=== PATIENT | female | born 1975 | race American Indian/Alaskan Native ===

== ENCOUNTER 2016-11-09 04:12 | Observation (INO) | payer MEDICARE ==
[2016-11-09 06:14] LABS: Eosinophils % (Auto) 0.7 % (0.0-4.3); Hematocrit 38.3 % (30.3-42.9); Hemoglobin 12.2 gm/dl (10.1-14.3); Mean Corpuscular HGB Conc 32 % (30-34); Mean Corpuscular Hemoglobin 27 pg (28-32); Mean Corpuscular Volume 86 fl (79-97); Platelet Count 195 K/mm3 (140-440); Red Blood Count 4.47 M/mm3 (3.65-5.03); Red Cell Distribution Width 16.7 % (13.2-15.2); White Blood Count 9.5 K/mm3 (4.5-11.0)
[2016-11-09 06:37] LABS: Anion Gap 19 mmol/L; BUN/Creatinine Ratio 17.77; Blood Urea Nitrogen 16 mg/dL (7-17); Calcium 9.1 mg/dL (8.4-10.2); Carbon Dioxide 21 mmol/L (22-30); Glucose 98 mg/dL (65-100); Potassium 4.2 mmol/L (3.6-5.0); Sodium 142 mmol/L (137-145)
[2016-11-09] MEDS ORDERED: DILAUDID IV ONE (07:05)
[2016-11-09] MEDS ORDERED: PHENERGAN PR ONE (07:06)
[2016-11-09] MEDS ORDERED: BENADRYL IV ONE (07:06)
[2016-11-09] MEDS ORDERED: PEPCID IV ONE (07:13)
--- NOTE | 2016-11-09 07:13 | Emergency Department Report ---
HPI - General Chief Complaint: Chest Pain Time Seen by Provider: 11/09/16 06:51 - HPI HPI: Room 22 The patient is a 41-year-old female presenting with chief complaint of feeling sick. The patient presents with multiple complaints stating she's felt "sick" for approximately 1.5 weeks. Patient states her symptoms includes wheezing as well as a constant substernal chest pain that is pleuritic in nature. The patient states he feels though her lupus has flared up because she has had arthralgia and a headache. Patient admits to nausea vomiting for 5 days. Patient also complains of a headache for 5 days. Patient admits to a cough occasionally productive of yellow sputum. Patient states her physician a few days ago and was given IM Phenergan. Patient was subsequently sent to [facility] ED for evaluation. The patient states "they wanted to keep me" but she declined. Patient states her symptoms are continuing. The patient states her last stress test was many years ago she has never had a cardiac catheterization Location: [see above] Duration: 1.5 weeks Quality: Pain, nausea, sharp Severity: 10/10 Modifying factors: [see above] Context: [see above] Mode of transportation: Unknown ED Past Medical Hx - Past Medical History Previous Medical History?: Yes Hx Hypertension: Yes Hx Headaches / Migraines: Yes Hx Asthma: Yes Additional medical history: Lupus, Sarcoidosis, Intubated as a child - Surgical History Past Surgical History?: Yes Hx Cholecystectomy: Yes Additional Surgical History: Tonsillectomy/Adenoidectomy Left hand surgey - Family History Family history: no significant - Social History Smoking Status: Never Smoker Substance Use Type: None - Medications Home Medications: Home Medications Medication Instructions Recorded Confirmed Last Taken Type ALBUTEROL Inhaler [Proair] 2 puff IH QID PRN 11/09/16 11/09/16 11/08/16 History ALPRAZolam [Xanax TAB] 2 mg PO BID 11/09/16 11/09/16 11/08/16 History Esomeprazole Magnesium [NexIUM] 40 mg PO QDAY 11/09/16 11/09/16 11/08/16 History Fluticasone/Salmeterol [Advair 1 puff IH PRN 11/09/16 11/09/16 11/08/16 History Diskus 500-50 mcg] Indomethacin 50 mg PO BID 11/09/16 11/09/16 11/08/16 History Levalbuterol HCl [Xopenex 1.25 mg IH PRN 11/09/16 11/09/16 11/08/16 History Concentrate] Lisinopril [Zestril TAB] 10 mg PO QDAY 11/09/16 11/09/16 11/08/16 History Methotrexate Sodium [Trexall] 2.5 mg PO DAILY 11/09/16 11/09/16 11/08/16 History Oxycodone HCl/Acetaminophen 1 each PO Q6HR PRN 11/09/16 11/09/16 11/08/16 History [Percocet 10/325 mg] Pravastatin Sodium [Pravastatin] 10 mg PO QHS 11/09/16 11/09/16 11/08/16 History Promethazine [Phenergan TAB] 50 mg PO BID 11/09/16 11/09/16 11/08/16 History diphenhydrAMINE [Benadryl CAP] 50 mg PO BID PRN 11/09/16 11/09/16 11/08/16 History predniSONE [Deltasone] 10 mg PO QDAY 11/09/16 11/09/16 11/08/16 History ED Review of Systems ROS: Stated complaint: CP/CORINNA Other details as noted in HPI Comment: All other systems reviewed and negative Constitutional: denies: chills, fever Eyes: denies: eye pain, eye discharge, vision change ENT: denies: ear pain, throat pain Respiratory: cough Cardiovascular: chest pain Endocrine: no symptoms reported Gastrointestinal: nausea, vomiting Genitourinary: denies: urgency, dysuria, discharge Musculoskeletal: arthralgia Skin: denies: rash, lesions Neurological: headache. denies: weakness, paresthesias Psychiatric: denies: anxiety, depression Hematological/Lymphatic: denies: easy bleeding, easy bruising Physical Exam - Physical Exam Vital Signs: Vital Signs 11/09/16 11/09/16 11/09/16 04:47 04:57 06:06 Temperature 98.5 F Pulse Rate 108 H 108 H 100 H Respiratory 24 22 Rate Blood Pressure 126/90 Blood Pressure 126/90 119/78 [Left] O2 Sat by Pulse 95 96 Oximetry Physical Exam: GENERAL: The patient is well-developed well-nourished female lying on stretcher with sunglasses in place not appearing to be in acute distress. [] HEENT: Normocephalic. Atraumatic. Patient has moist mucous membranes. NECK: Supple. No meningitic signs are noted. He came midline CHEST/LUNGS: Clear to auscultation. There is no respiratory distress noted. HEART/CARDIOVASCULAR: Regular. There is no tachycardia. There is no gallop rub or murmur. ABDOMEN: Abdomen is soft, with mild discomfort to palpation in the right lower quadrant. Patient has normal bowel sounds. There is no abdominal distention. SKIN: There is no rash. There is no edema. There is no diaphoresis. NEURO: The patient is awake, alert, and oriented. The patient is cooperative. The patient has normal speech MUSCULOSKELETAL: There is no evidence of acute injury. ED Course Vital Signs 11/09/16 11/09/16 11/09/16 04:47 04:57 06:06 Temperature 98.5 F Pulse Rate 108 H 108 H 100 H Respiratory 24 22 Rate Blood Pressure 126/90 Blood Pressure 126/90 119/78 [Left] O2 Sat by Pulse 95 96 Oximetry ED Medical Decision Making - Lab Data Result diagrams: 11/09/16 06:00 11/09/16 05:04 Laboratory Tests 11/09/16 11/09/16 11/09/16 05:04 06:00 06:04 WBC 9.5 RBC 4.47 Hgb 12.2 Hct 38.3 MCV 86 MCH 27 L MCHC 32 RDW 16.7 H Plt Count 195 Lymph % (Auto) 28.5 Simpson % (Auto) 4.9 Eos % (Auto) 0.7 Baso % (Auto) 1.0 Lymph # 2.7 Simpson # 0.5 Eos # 0.1 Baso # 0.1 Seg Neutrophils % 64.9 Seg Neutrophils # 6.2 Sodium 142 Potassium 4.2 Chloride 106.0 Carbon Dioxide 21 L Anion Gap 19 BUN 16 Creatinine 0.9 Estimated GFR > 60 BUN/Creatinine Ratio 17.77 Glucose 98 Calcium 9.1 Troponin T < 0.010 HCG, Qual Negative - EKG Data -: EKG Interpreted by Wy EKG shows normal: sinus rhythm Rate: tachycardia (102 bpm) - EKG Data When compared to previous EKG there are: previous EKG unavailable Interpretation: normal EKG - Radiology Data Radiology results: report reviewed (CT Head, CT chest, CT abdomen and pelvis), image reviewed (CT head, CT chest, CT abdomen and pelvis) CT head (read by radiologist)- no CT evident intracranial injury CT chest (read by the radiologist) (-unremarkable examination CT abdomen and pelvis (read by radiologist)-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 1.8 cm left ovarian cyst. Suspect 12 mm right adrenal adenoma. Consider follow-up noncontrast CT in 6 months to ensure stability in size. Diffuse fatty infiltrates in the liver. Cholecystectomy. - Differential Diagnosis PE, ACS, pneumonia, ICH, migraine Critical care attestation.: If time is entered above; I have spent that time in minutes in the direct care of this critically ill patient, excluding procedure time. ED Disposition Clinical Impression: Chest pain Disposition: OP ADMIT IP TO THIS HOSP Is pt being admited?: Yes Does the pt Need Aspirin: Yes Condition: Fair Instructions: Chest Pain (ED) Referrals: PRIMARY CARE, [Primary Care Provider] - 3-5 Days Time of Disposition: 10:00 (hospitalist paged)
[2016-11-09] MEDS ORDERED: NACL ONE (07:16)
--- NOTE | 2016-11-09 08:47 | Cat Scan Report ---
FINAL REPORT PROCEDURE: CT HEAD/BRAIN WO CON TECHNIQUE: Computerized tomography of the head was performed without contrast material. HISTORY: GLF, syncope COMPARISON: None FINDINGS: Brain volume is age appropriate. There is no hydrocephalus. There is no infarction, intra or extra-axial hemorrhage. There is no mass effect or shift of midline structures. The skull base and calvarium are intact. The partially visualized paranasal sinuses, mastoid air cells and middle ears are clear. IMPRESSION: No CT evident intracranial injury.
--- NOTE | 2016-11-09 08:57 | Cat Scan Report ---
FINAL REPORT PROCEDURE: CT ABDOMEN PELVIS W CON TECHNIQUE: Computerized axial tomography of the abdomen and pelvis was performed after the IV injection of iodinated nonionic contrast. HISTORY: right lower quadrant abdominal pain nausea vomitin COMPARISON: None FINDINGS: Visualized lower thorax: Mild bibasilar subsegmental atelectasis. Liver: Diffuse fatty infiltration. Spleen: Normal. Gallbladder and biliary system: Cholecystectomy. No biliary ductal obstruction. Pancreas: Normal. Adrenals: Suspect 12 millimeter right adrenal adenoma. Normal left adrenal gland. Kidneys: Normal. GI tract: Limited in evaluation without oral contrast. No bowel obstruction or gross focal bowel abnormality. Normal appendix. Lymph nodes and mesentery: Normal. Vasculature: Normal. Bladder: Normal. Reproductive organs: Normal uterus and right adnexa. 1.8 centimeter left ovarian cyst. Peritoneum: No free fluid. Musculoskeletal structures: Curvilinear density of the femoral heads concerning for avascular necrosis without significant femoral head collapse. Mildly bulging annulus at L4/L5. Other: None. 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 1.8 centimeter left ovarian cyst. Suspect 12 millimeter right adrenal adenoma. Consider follow-up noncontrast CT in 6 months to ensure stability in size. Diffuse fatty infiltration of the liver. Cholecystectomy
--- NOTE | 2016-11-09 09:08 | Cat Scan Report ---
FINAL REPORT PROCEDURE: CT ANGIO CHEST TECHNIQUE: Computerized tomographic angiography of the chest was performed during the IV injection of iodinated nonionic contrast including image processing. The image data was postprocessed using 2-dimensional multiplanar reformatted (MPR) and 3-dimensional (MIP and/or volume rendered) techniques. HISTORY: chest pain, pleurisy COMPARISON: None FINDINGS: Heart and pericardium: Normal. Thoracic aorta: Normal. Pulmonary vasculature: Normal. Lymph nodes: No enlarged thoracic lymph nodes. Lungs: There is no pulmonary parenchymal mass, nodule, or infiltrate. Mild dependent subsegmental atelectasis is present.. Pleural space: No effusion, thickening, or pneumothorax. Musculoskeletal structures: No significant abnormality. Upper abdominal structures: Cholecystectomy. Left IJ CVC in place, catheter tip at the cavoatrial junction IMPRESSION: Unremarkable examination
[2016-11-09] MEDS ORDERED: ASPIRIN PO ONE (10:01)
[2016-11-09] MEDS ORDERED: NITRO-BID 2% TP ONE (10:01)
[2016-11-09] MEDS ORDERED: SODIUM CHLORIDE FLUSH SYRINGE 10 ML IV PRN (10:54)
[2016-11-09] MEDS ORDERED: TYLENOL PO PRN (10:54)
[2016-11-09] MEDS ORDERED: PERCOCET 5/325 PO PRN (10:54)
[2016-11-09] MEDS ORDERED: NITROSTAT SL PRN (10:54)
[2016-11-09] MEDS ORDERED: PHENERGAN PR PRN (10:54)
[2016-11-09] MEDS ORDERED: ZOFRAN IV PRN (10:54)
[2016-11-09] MEDS ORDERED: DULCOLAX PR PRN (10:54)
[2016-11-09] MEDS ORDERED: MILK OF MAGNESIA PO PRN (10:54)
[2016-11-09] MEDS ORDERED: NACL 0.9% 1000 ML 1,000 ML IV SCH (11:00)
--- NOTE | 2016-11-09 11:11 | History and Physical Report ---
History of Present Illness Date of examination: 11/09/16 Date of admission: 11/09/16 Chief complaint: chest pain History of present illness: Patient is a 41 years old obese -Burmese female with lupus, hypertension , asthma, chronic pain syndrome, who complains of chest pain that started a few days ago. Chest pain is substernal, intense with physical activity, relieved by rest, associated with shortness of breath, but no nausea, vomiting, diaphoresis. She also complains of chronic cough and occasionally with sputum production. States that "her lupus is flaring up and she has multiple joint pain in her generalized chronic pain is worsening. Patient reports she was seen by her PCP and was given IM Phenergan. She reports either G to multiple narcotics and is asking for Dilaudid. It seems that she presented to multiple hospitals. Past History Past Medical History: hypertension, other (lupus, asthma) Past Surgical History: cholecystectomy, tonsillectomy Social history: denies: smoking, alcohol abuse, prescription drug abuse Family history: hypertension Medications and Allergies Allergies Allergy/AdvReac Type Severity Reaction Status Date / Time baclofen Allergy Rash Verified 11/09/16 07:23 elliott Allergy Rash Verified 11/09/16 07:23 cephalexin monohydrate Allergy Rash Verified 11/09/16 07:23 [From Keflex] fentanyl Allergy Rash Verified 11/09/16 07:23 ipratropium bromide Allergy Rash Verified 11/09/16 07:23 [From Atrovent] ketorolac tromethamine Allergy Rash Verified 11/09/16 07:23 [From Toradol] magnesium Allergy Rash Verified 11/09/16 07:23 meperidine HCl [From Demerol] Allergy Rash Verified 11/09/16 07:23 morphine Allergy Rash Verified 11/09/16 07:23 mushroom Allergy Rash Verified 11/09/16 07:23 nut - unspecified Allergy Rash Verified 11/09/16 07:23 ondansetron HCl Allergy Rash Verified 11/09/16 07:23 [From Zofran (as hydrochloride)] Penicillins Allergy Rash Verified 11/09/16 07:23 pregabalin [From Lyrica] Allergy Rash Verified 11/09/16 07:23 prochlorperazine Allergy Rash Verified 11/09/16 07:23 [From Compazine] prochlorperazine edisylate Allergy Rash Verified 11/09/16 07:23 [From Compazine] prochlorperazine maleate Allergy Rash Verified 11/09/16 07:23 [From Compazine] sumatriptan [From Imitrex] Allergy Seizure Verified 11/09/16 07:23 sumatriptan succinate Allergy Seizure Verified 11/09/16 07:23 [From Imitrex] Home Medications Medication Instructions Recorded Confirmed Last Taken Type ALBUTEROL Inhaler [Proair] 2 puff IH QID PRN 11/09/16 11/09/16 11/08/16 History ALPRAZolam [Xanax TAB] 2 mg PO BID 11/09/16 11/09/16 11/08/16 History Esomeprazole Magnesium [NexIUM] 40 mg PO QDAY 11/09/16 11/09/16 11/08/16 History Fluticasone/Salmeterol [Advair 1 puff IH PRN 11/09/16 11/09/16 11/08/16 History Diskus 500-50 mcg] Indomethacin 50 mg PO BID 11/09/16 11/09/16 11/08/16 History Levalbuterol HCl [Xopenex 1.25 mg IH PRN 11/09/16 11/09/16 11/08/16 History Concentrate] Lisinopril [Zestril TAB] 10 mg PO QDAY 11/09/16 11/09/16 11/08/16 History Methotrexate Sodium [Trexall] 2.5 mg PO DAILY 11/09/16 11/09/16 11/08/16 History Oxycodone HCl/Acetaminophen 1 each PO Q6HR PRN 11/09/16 11/09/16 11/08/16 History [Percocet 10/325 mg] Pravastatin Sodium [Pravastatin] 10 mg PO QHS 11/09/16 11/09/16 11/08/16 History Promethazine [Phenergan TAB] 50 mg PO BID 11/09/16 11/09/16 11/08/16 History diphenhydrAMINE [Benadryl CAP] 50 mg PO BID PRN 11/09/16 11/09/16 11/08/16 History predniSONE [Deltasone] 10 mg PO QDAY 11/09/16 11/09/16 11/08/16 History Active Meds: Active Medications Acetaminophen (Tylenol) 650 mg PO Q4H PRN PRN Reason: Pain MILD(1-3)/Fever >100.5/ARITA Aspirin (Ecotrin) 325 mg PO QDAY ANA Atorvastatin Calcium (Lipitor) 10 mg PO QHS ANA Bisacodyl (Dulcolax) 10 mg RI QDAY PRN PRN Reason: Const[place]relie[place] [facility] Docusate Sodium (Colace) 100 mg PO BID [facility] Enoxaparin Sodium (Lovenox) 40 mg SUB-Q QDAY ANA Famotidine (Pepcid) 10 mg IV BID ANA Hydrochlorothiazide (Hctz) 12.5 mg PO QDAY ONE Stop: 11/09/16 11:10 Sodium Chloride (Nacl 0.9% 1000 Ml) 1,000 mls @ 75 mls/hr IV DIRECT ANA Lisinopril (Zestril) 10 mg PO QDAY [facility] Magnesium Hydroxide (Milk Of Magnesia) 30 ml PO Q4H PRN PRN Reason: Constipation Miscellaneous Medication (Alprazolam [Xanax Tab]) 2 mg PO BID [facility] Miscellaneous Medication (Fluticasone/Salmeterol [Advair Diskus 500-50 Mcg]) 1 puff IH PRN [facility] Miscellaneous Medication (Indomethacin [Indomethacin]) 50 mg PO BID [facility] Miscellaneous Medication (Methotrexate Sodium [Trexall]) 2.5 mg PO DAILY ANA Miscellaneous Medication (Pravastatin Sodium [Pravastatin]) 10 mg PO QHS [facility] Nitroglycerin (Nitrostat) 0.4 mg SL Q5M PRN PRN Reason: Chest Pain Ondansetron HCl (Zofran) 4 mg IV Q8H PRN PRN Reason: N/V unrelieved by Reglan Oxycodone/Acetaminophen (Percocet 5/325) 1 tab PO Q6H PRN PRN Reason: Pain, Moderate (4-6) Prednisone (Deltasone) 10 mg PO QDAY ANA Promethazine HCl (Phenergan) 25 mg RI Q6H PRN PRN Reason: N/V IF NPO AND NO IV ACCESS Sodium Chloride (Sodium Chloride Flush Syringe 10 Ml) 10 ml IV PRN PRN PRN Reason: LINE FLUSH Review of Systems Constitutional: no weight loss, no weight gain, no fever, no chills Ears, nose, mouth and throat: no ear pain, no tinnitis, no nasal congestion, no nasal discharge, no bleeding gums, no dysphagia Cardiovascular: chest pain, shortness of breath, dyspnea on exertion, no orthopnea, no palpitations, no syncope Respiratory: cough with sputum, shortness of breath, dyspnea on exertion, no congestion, no wheezing, no pleurisy Gastrointestinal: nausea, no abdominal pain, no vomiting, no change in bowel habits Genitourinary Female: no pelvic pain, no flank pain, no menorrhagia, no dysuria Rectal: no pain, no incontinence, no itching, no hemorrhoids Musculoskeletal: morning stiffness, muscle weakness, limitation of motion, other (joint pain) Integumentary: no rash, no pruritis, no sores, no wounds Neurological: no weakness, no parathesias, no numbness, no tingling Psychiatric: no anxiety, no memory loss, no depression, no hopelessness Endocrine: no cold intolerance, no heat intolerance, no polydipsia, no polyuria Hematologic/Lymphatic: no easy bruising, no easy bleeding, no lymphadenopathy, no lymphedema Allergic/Immunologic: no persistent infections Exam - Constitutional Vitals: Temp Pulse Resp BP Pulse Ox 98.3 F 105 H 20 162/98 95 11/09/16 07:37 11/09/16 07:37 11/09/16 07:37 11/09/16 07:37 11/09/16 07:37 General appearance: Present: no acute distress, obese - EENT Eyes: Present: PERRL, EOM intact. Absent: scleral icterus, conjunctival injection - Neck Neck: Present: supple, normal ROM. Absent: masses or JVD - Respiratory Respiratory effort: normal Respiratory: bilateral: diminished (bybasilar due to body habitus), negative: rhonchi, wheezing - Cardiovascular Rhythm: other (tachycardic) Heart Sounds: Present: S1 & S2. Absent: systolic murmur - Extremities Extremities: no ischemia - Abdominal General gastrointestinal: Present: soft, non-tender, non-distended, normal bowel sounds - Integumentary Integumentary: Present: warm, dry. Absent: jaundice, rash - Musculoskeletal Musculoskeletal: strength equal bilaterally - Psychiatric Psychiatric: no appropriate mood/affect, cooperative - Neurologic Neurologic: CNII-XII intact, no focal deficits Results - Labs CBC & Chem 7: 11/09/16 06:00 11/09/16 05:04 Labs: Abnormal lab results 11/09/16 11/09/16 Range/Units 05:04 06:00 MCH 27 L (28-32) pg RDW 16.7 H (13.2-15.2) % Carbon Dioxide 21 L (22-30) mmol/L - Imaging and Cardiology EKG: image reviewed Chest x-ray: image reviewed CT scan - abdomen: report reviewed CT scan - chest: report reviewed CT Scan - head: report reviewed Assessment and Plan 1. Chest pain EKG with no acute changes, troponin negative Will trend cardiac enzymes and obtain stress test given her risk factors - obesity, hypertension, chronic inflammation, family history 2. Asthma Inhaled bronchodilators, supplemental oxygen as needed 3. Hypertension Resume lisinopril, add HCTZ 4. Lupus Resume methotrexate/prednisone 5. Nausea/vomiting? IV fluids, Zofran 6. Obesity Counseled regarding importance of losing weight and lifestyle changes 7. DVT prophylaxis Lovenox
[2016-11-09] MEDS ORDERED: ZESTRIL PO SCH (12:00)
[2016-11-09] MEDS ORDERED: HCTZ PO SCH (12:00)
[2016-11-09] MEDS ORDERED: LOVENOX SUB-Q SCH (12:00)
[2016-11-09] MEDS ORDERED: COLACE PO SCH (12:00)
[2016-11-09] MEDS ORDERED: DELTASONE PO SCH (12:00)
[2016-11-09 12:32] VITALS: BP 121/78
[2016-11-09] MEDS ORDERED: FLUSH HEPARIN IV ONE ×2 (19:22→19:27)
[2016-11-09] MEDS ORDERED: BROVANA NEBU IH SCH (20:00)
[2016-11-09] MEDS ORDERED: PULMICORT IH SCH (20:00)
[2016-11-09] MEDS ORDERED: XANAX PO SCH (22:00)
[2016-11-09] MEDS ORDERED: INDOCIN PO SCH (22:00)
[2016-11-09] MEDS ORDERED: NON-FORMULARY (Pravastatin Sodium [Pravastatin] 10 MG) PO SCH (22:00)
[2016-11-09] MEDS ORDERED: PEPCID IV SCH (22:00)
--- NOTE | 2016-11-10 09:05 | Discharge Summary ---
Providers - Providers Date of Admission: 11/09/16 12:01 Date of discharge: 11/10/16 Attending physician: CALIXTO BETH Primary care physician: DEEPA BURGESS MD Hospitalization Reason for admission: chest pain Condition: Stable Disposition: DC-07 LEFT AGAINST MED ADVICE Core Measure Documentation - Palliative Care Palliative Care/ Comfort Measures: Not Applicable - Core Measures Any of the following diagnoses?: none Exam - Constitutional Vitals: Temp Pulse Resp BP Pulse Ox 98.3 F 84 18 121/78 100 11/09/16 07:37 11/09/16 13:04 11/09/16 12:55 11/09/16 12:16 11/09/16 12:16 Plan Follow up with: PRIMARY MD JENIFER [Primary Care Provider] - 3-5 Days
[2016-11-10] MEDS ORDERED: METHOTREXATE SODIUM 2.5 MG PO SCH (10:00)
[2016-11-10] MEDS ORDERED: ECOTRIN PO SCH (10:00)
[2016-11-10] MEDS ORDERED: METHOTREXATE(DOSE WEEKLY ONLY) PO SCH (10:00)
[2016-11-10] MEDS ORDERED: LOVENOX SUB-Q SCH (10:00)
--- NOTE | 2016-11-13 09:55 | Query- Chest Pain ---
[place]____Arnaldo Date:____11/13/16 Air Duct Mechanic/CDS:____Darryl / Yang Phone#:____[phone] Exercise your independent professional judgment when responding to query. Questions asked do not imply a particular answer is desired or expected. We greatly appreciate your clarification on this issue. Clinical Documentation States: 41 year old female was admitted on 11/09/16. The H&P (Dr. Mcintosh) states " Patient is a 41 years old obese -Swedish female with lupus, hypertension, asthma, chronic pain syndrome, who complains of chest pain that started a few days ago Assessment and Plan 1. Chest pain EKG with no acute changes, troponin negative Will trend cardiac enzymes and obtain stress test given her risk factors - obesity, hypertension, chronic inflammation, family history " Please document the etiology of Chest Pain: [ ] Myocardial Infarction [ ] Pneumonia [ ] Mediastinitis [ ] Costochondritis [ ] Pulmonary Embolism [ ] Coronary Artery Disease [ ] GERD [ ] Other: left AMA before any test performed [x ] Comment/Explanation: Present on Admission: [ ] Yes (Y) [x ] Clinically undeterminable (W) [ ] No(N) Please document response in your Progress Notes and/or Discharge Summary and indicate if the condition was present on admission. ASHANTI
== END 2016-11-09 20:05 | disposition left against medical advice (07) ==
LOC: ED 04:12 → 4A 12:01 → INTOOBSV 12:01
PROVIDERS: ADMIT Internal Medicine; ATTEND Internal Medicine
DX: R07.2 Precordial pain (principal); I10 Essential (primary) hypertension; G43.909 Migraine, unspecified, not intractable, without status migrainosus; J45.909 Unspecified asthma, uncomplicated; M32.9 Systemic lupus erythematosus, unspecified; E66.9 Obesity, unspecified; D86.9 Sarcoidosis, unspecified; G89.4 Chronic pain syndrome; Z88.8 Allergy status to other drugs, medicaments and biological substances; Z88.6 Allergy status to analgesic agent; Z88.0 Allergy status to penicillin; Z90.49 Acquired absence of other specified parts of digestive tract; Z79.899 Other long term (current) drug therapy; Z82.49 Family history of ischemic heart disease and other diseases of the circulatory system; Z88.5 Allergy status to narcotic agent; Z68.39 Body mass index [BMI] 39.0-39.9, adult; Z53.21 Procedure and treatment not carried out due to patient leaving prior to being seen by health care provider
CPT/HCPCS: 36415; 70450; 71275; 74177; 80048; 80061; 84484; 84703; 85025; 93005; 93010; 96361; 96374; 96375; 99285; G0378; J1170; J1200; J1642; J7030; Q9967; J8610

== ENCOUNTER 2016-12-05 23:36 | Inpatient (IN) | payer MEDICARE ==
[2016-12-06] MEDS ORDERED: MAGNESIUM SULFATE 2GM/50ML 2 GM/50 ML BAG IV ONE (00:07)
[2016-12-06] MEDS ORDERED: DILAUDID IV ONE ×2 (00:14→02:55)
[2016-12-06] MEDS ORDERED: PHENERGAN PO ONE ×2 (00:16→02:55)
[2016-12-06] MEDS ORDERED: NACL 0.9% 1000 ML 1,000 ML IV ONE (00:16)
[2016-12-06] MEDS ORDERED: XOPENEX IH ONE ×2 (00:16→14:13)
[2016-12-06 00:43] LABS: Basophils % (Auto) 0.7 % (0.0-1.8); Eosinophils % (Auto) 0.1 % (0.0-4.3); Hematocrit 37.8 % (30.3-42.9); Hemoglobin 12.4 gm/dl (10.1-14.3); Mean Corpuscular HGB Conc 33 % (30-34); Mean Corpuscular Hemoglobin 28 pg (28-32); Mean Corpuscular Volume 85 fl (79-97); Platelet Count 226 K/mm3 (140-440); Red Blood Count 4.46 M/mm3 (3.65-5.03); Red Cell Distribution Width 16.5 % (13.2-15.2); White Blood Count 10.9 K/mm3 (4.5-11.0)
[2016-12-06 00:53] LABS: INR 0.88 (0.87-1.13)
--- NOTE | 2016-12-06 01:02 | Emergency Department Report ---
ED Shortness of Breath HPI - General Chief Complaint: Dyspnea/Respdistress Stated Complaint: DIFFICULTY IN BREATHING Time Seen by Provider: 12/06/16 00:00 Source: patient, EMS, old records reviewed (several [facility] hospital visits, possible narcotic dependence) Mode of arrival: Stretcher Limitations: No Limitations - History of Present Illness Initial Comments: 41-year-old female with a past smoking history asthma, arthritis, hypertension, depression, sarcoidosis, lupus, and chronic pain syndrome (on pain management takes Percocet and/or Dilaudid presents to the Hospital complaining of generalized body pain and shortness of breath. Patient apparently was at an at [facility] (unknown campus) yesterday and states she was treated in the ED for wheezing and shortness of breath and subsequently discharged. She denies signing out AMA. Patient went home and continued to have worsening shortness of breath despite multiple doses of Xopenex prior to EMS arrival. Upon EMS arrival she received additional albuterol 5 mg and Solu-Medrol 125 IM. Patient complains of generalized body secondary to lupus flare. She takes prednisone 20 mg daily chronically and denies recent increase. Positive cough that rales in her chest but is otherwise nonproductive. No reports of fever. Presents reproducible sternal chest pain. Patient also states for the last 3 days she's been vomiting and unable to keep anything down and complains of generalized abdominal soreness without complaints of diarrhea. Patient presents to the ED on nonrebreather. - Related Data Home Medications Medication Instructions Recorded Confirmed Last Taken Pravastatin Sodium 40 mg PO QDAY 04/27/15 11/10/16 10/06/16 Promethazine [Phenergan TAB] 50 mg PO TID 02/06/16 11/10/16 10/06/16 diphenhydrAMINE [Benadryl CAP] 50 mg PO TID 02/06/16 11/10/16 10/06/16 ALPRAZolam [Xanax TAB] 2 mg PO BID 10/09/16 11/10/16 10/06/16 Zolpidem [Ambien] 10 mg PO QHS 10/09/16 11/10/16 10/06/16 ALBUTEROL Inhaler [Proair] 2 puff IH QID PRN 11/09/16 11/09/16 11/08/16 ALPRAZolam [Xanax TAB] 2 mg PO BID 11/09/16 11/09/16 11/08/16 Esomeprazole Magnesium [NexIUM] 40 mg PO QDAY 11/09/16 11/09/16 11/08/16 Fluticasone/Salmeterol [Advair 1 puff IH PRN 11/09/16 11/09/16 11/08/16 Diskus 500-50 mcg] Indomethacin 50 mg PO BID 11/09/16 11/09/16 11/08/16 Levalbuterol HCl [Xopenex 1.25 mg IH PRN 11/09/16 11/09/16 11/08/16 Concentrate] Lisinopril [Zestril TAB] 10 mg PO QDAY 11/09/16 11/09/16 11/08/16 Methotrexate Sodium [Trexall] 2.5 mg PO DAILY 11/09/16 11/09/16 11/08/16 Oxycodone HCl/Acetaminophen 1 each PO Q6HR PRN 11/09/16 11/09/16 11/08/16 [Percocet 10/325 mg] Pravastatin Sodium [Pravastatin] 10 mg PO QHS 11/09/16 11/09/16 11/08/16 Promethazine [Phenergan TAB] 50 mg PO BID 11/09/16 11/09/16 11/08/16 diphenhydrAMINE [Benadryl CAP] 50 mg PO BID PRN 11/09/16 11/09/16 11/08/16 predniSONE [Deltasone] 10 mg PO QDAY 11/09/16 11/09/16 11/08/16 Previous Rx's Medication Instructions Recorded Last Taken Type Albuterol Sulfate [Albuterol 0.63% 0.63 mg IH TID PRN #25 unit 08/05/15 Rx NEBS] Fluticasone/Salmeterol [Advair 1 puff IH BID #1 blst.w.dev 11/12/15 10/06/16 Rx Diskus 250-50 mcg] Famotidine [Pepcid] 20 mg PO BID #10 tablet 12/27/15 10/06/16 Rx Levalbuterol HCl [Xopenex] 0.63 mg IH Q6H PRN #30 vial.neb 09/08/16 10/06/16 Rx oxyCODONE /ACETAMINOPHEN [Percocet 1 tab PO Q6HR PRN #10 tablet 09/08/16 Rx 5/325] ALBUTEROL Inhaler [ProAir HFA 2 puff IH QID PRN #1 inhalation 10/09/16 Unknown Rx Inhaler] predniSONE [Deltasone] 20 mg PO QDAY #5 tablet 10/09/16 Unknown Rx Allergies Allergy/AdvReac Type Severity Reaction Status Date / Time aspirin Allergy Rash Verified 06/22/15 09:22 baclofen Allergy Rash Verified 11/09/16 07:23 elliott Allergy Rash Verified 11/09/16 07:23 cephalexin monohydrate Allergy Rash Verified 11/09/16 07:23 [From Keflex] dexamethasone [From Decadron] Allergy Rash Verified 11/12/15 03:24 dexamethasone sod phosphate Allergy Rash Verified 11/12/15 03:24 [From Decadron] droperidol [From Inapsine] Allergy Rash Verified 07/18/16 11:03 fentanyl Allergy Rash Verified 11/09/16 07:23 ipratropium bromide Allergy Rash Verified 11/09/16 07:23 [From Atrovent] ketorolac tromethamine Allergy Rash Verified 11/09/16 07:23 [From Toradol] magnesium Allergy Rash Verified 11/09/16 07:23 meperidine HCl [From Demerol] Allergy Rash Verified 11/09/16 07:23 morphine Allergy Rash Verified 11/09/16 07:23 mushroom Allergy Rash Verified 11/09/16 07:23 naproxen [From Naprosyn] Allergy Swelling Verified 06/22/15 09:22 nut - unspecified Allergy Rash Verified 11/09/16 07:23 ondansetron HCl Allergy Rash Verified 11/09/16 07:23 [From Zofran (as hydrochloride)] Penicillins Allergy Rash Verified 11/09/16 07:23 pregabalin [From Lyrica] Allergy Rash Verified 11/09/16 07:23 prochlorperazine Allergy Rash Verified 11/09/16 07:23 [From Compazine] prochlorperazine edisylate Allergy Rash Verified 11/09/16 07:23 [From Compazine] prochlorperazine maleate Allergy Rash Verified 11/09/16 07:23 [From Compazine] sulfamethoxazole Allergy Rash Verified 06/22/15 09:22 [From Bactrim] sumatriptan [From Imitrex] Allergy Seizure Verified 11/09/16 07:23 sumatriptan succinate Allergy Seizure Verified 11/09/16 07:23 [From Imitrex] trimethoprim [From Bactrim] Allergy Rash Verified 06/22/15 09:22 ED Review of Systems ROS: Stated complaint: DIFFICULTY IN BREATHING Other details as noted in HPI Comment: All other systems reviewed and negative Other: Constitutional: No fevers chills Eyes: No eye pain visual changes ENT: No ear pain or throat pain Neck: Denies pain Respiratory: as per hpi Cardiovascular: as per HPI GI: As per HPI : Denies dysuria Musculoskeletal: generalized pain Skin: Denies rash, lesions, erythema Neurologic: Denies headache, numbness, weakness Psychiatric: Denies suicidal ideation, hallucinations ED Past Medical Hx - Past Medical History Previous Medical History?: Yes Hx Hypertension: Yes Hx Renal Disease: No Hx Arthritis: Yes Hx Headaches / Migraines: Yes Hx Psychiatric Treatment: Yes (depression) Hx Asthma: Yes Hx HIV: No Additional medical history: Sarcoidosis, chronic pain management, H. yplori, LUPUS. PNEUMONIA - Surgical History Past Surgical History?: Yes Hx Cholecystectomy: Yes Additional Surgical History: Port placement left chest - Social History Smoking Status: Never Smoker Substance Use Type: Prescribed - Medications Home Medications: Home Medications Medication Instructions Recorded Confirmed Last Taken Type Pravastatin Sodium 40 mg PO QDAY 04/27/15 11/10/16 10/06/16 History Albuterol Sulfate [Albuterol 0.63% 0.63 mg IH TID PRN #25 unit 08/05/1510/06/16 Rx NEBS] Fluticasone/Salmeterol [Advair 1 puff IH BID #1 blst.w.dev 11/12/15 11/10/16 Rx Diskus 250-50 mcg] Famotidine [Pepcid] 20 mg PO BID #10 tablet 12/27/15 11/10/16 10/06/16 Rx Promethazine [Phenergan TAB] 50 mg PO TID 02/06/16 11/10/16 10/06/16 History diphenhydrAMINE [Benadryl CAP] 50 mg PO TID 02/06/16 11/10/16 10/06/16 History Levalbuterol HCl [Xopenex] 0.63 mg IH Q6H PRN #30 vial.neb 09/08/16 11/10/16 Rx oxyCODONE /ACETAMINOPHEN [Percocet 1 tab PO Q6HR PRN #10 tablet 09/08/1610/06/16 Rx 5/325] ALBUTEROL Inhaler [ProAir HFA 2 puff IH QID PRN #1 inhalation 10/09/16 11/10/16 Unknown Rx Inhaler] ALPRAZolam [Xanax TAB] 2 mg PO BID 10/09/16 11/10/16 10/06/16 History Zolpidem [Ambien] 10 mg PO QHS 10/09/16 11/10/16 10/06/16 History predniSONE [Deltasone] 20 mg PO QDAY #5 tablet 10/09/16 11/10/16 Unknown Rx ALBUTEROL Inhaler [Proair] 2 puff IH QID PRN 11/09/16 11/09/16 11/08/16 History ALPRAZolam [Xanax TAB] 2 mg PO BID 11/09/16 11/09/16 11/08/16 History Esomeprazole Magnesium [NexIUM] 40 mg PO QDAY 11/09/16 11/09/16 11/08/16 History Fluticasone/Salmeterol [Advair 1 puff IH PRN 11/09/16 11/09/16 11/08/16 History Diskus 500-50 mcg] Indomethacin 50 mg PO BID 11/09/16 11/09/16 11/08/16 History Levalbuterol HCl [Xopenex 1.25 mg IH PRN 11/09/16 11/09/16 11/08/16 History Concentrate] Lisinopril [Zestril TAB] 10 mg PO QDAY 11/09/16 11/09/16 11/08/16 History Methotrexate Sodium [Trexall] 2.5 mg PO DAILY 11/09/16 11/09/16 11/08/16 History Oxycodone HCl/Acetaminophen 1 each PO Q6HR PRN 11/09/16 11/09/1611/08/17 History [Percocet 10/325 mg] Pravastatin Sodium [Pravastatin] 10 mg PO QHS 11/09/16 11/09/16 11/08/16 History Promethazine [Phenergan TAB] 50 mg PO BID 11/09/16 11/09/16 11/08/16 History diphenhydrAMINE [Benadryl CAP] 50 mg PO BID PRN 11/09/16 11/09/16 11/08/16 History predniSONE [Deltasone] 10 mg PO QDAY 11/09/16 11/09/16 11/08/16 History ED Physical Exam - General Limitations: No Limitations - Other Other exam information: General: Moderate distress secondary to shortness of breath Head exam: Atraumatic Eyes exam: Normal appearance, ENT: Moist mucous membrane Neck exam: Normal inspection, full range of motion, no meningismus nontender Respiratory exam: Tachypnea, accessory muscle use, significant expiratory wheezing, breathlessness when speaking Cardiovascular: Tachycardic regular rhythm, reproducible sternal chest wall tenderness Abdomen: Soft, nondistended, mild generalized abdominal soreness, with normal bowel sounds, no rebound, or guarding Extremity: Full range of motion normal inspection no deformity, no significant edema noted, generalized tenderness to palpation Back: Normal Inspection, full range of motion, no tenderness Neurologic: Alert, oriented x3, cranial nerves intact, no motor or sensory deficit Psychiatric: normal affect, normal mood Skin: Warm, dry, intact ED Course Vital Signs 12/05/16 12/05/16 12/05/16 23:41 23:46 23:57 Temperature 98.1 F Pulse Rate 139 H 136 H Pulse Rate [ Bilateral Throughout] Respiratory 35 H 26 H Rate Respiratory Rate [Bilateral Throughout] Blood Pressure 94/59 O2 Sat by Pulse 96 96 96 Oximetry 12/06/16 12/06/16 12/06/16 00:00 00:03 00:16 Temperature Pulse Rate 137 H 136 H 132 H Pulse Rate [ Bilateral Throughout] Respiratory 54 H 26 H 41 H Rate Respiratory Rate [Bilateral Throughout] Blood Pressure 94/69 137/80 O2 Sat by Pulse 97 96 97 Oximetry 12/06/16 12/06/16 12/06/16 00:30 00:40 00:46 Temperature Pulse Rate 121 H 122 H 121 H Pulse Rate [ Bilateral Throughout] Respiratory 33 H 36 H 23 Rate Respiratory Rate [Bilateral Throughout] Blood Pressure 145/83 145/83 118/73 O2 Sat by Pulse 98 98 99 Oximetry 12/06/16 12/06/16 12/06/16 00:48 01:00 01:18 Temperature Pulse Rate 124 H Pulse Rate [ 122 H 129 H Bilateral Throughout] Respiratory 25 H Rate Respiratory 36 H 39 H Rate [Bilateral Throughout] Blood Pressure 118/73 O2 Sat by Pulse 98 Oximetry - Reevaluation(s) Reevaluation #1: 12/06/16 01:02 BiPAP initiated in the ED due to continued dyspnea despite multiple nebs prior to arrival. IV magnesium ordered, Phenergan for nausea, Dilaudid for pain, and additional Zofran ED Medical Decision Making - Lab Data Result diagrams: 12/06/16 Unknown 12/06/16 Unknown Lab Results 12/06/16 12/06/16 12/06/16 Range/Units Unknown Unknown Unknown WBC 10.9 (4.5-11.0) K/mm3 RBC 4.46 (3.65-5.03) M/mm3 Hgb 12.4 (10.1-14.3) gm/dl Hct 37.8 (30.3-42.9) % MCV 85 (79-97) fl MCH 28 (28-32) pg MCHC 33 (30-34) % RDW 16.5 H (13.2-15.2) % Plt Count 226 (140-440) K/mm3 Lymph % (Auto) 11.2 L (13.4-35.0) % [place] % (Auto) 1.1 (0.0-7.3) % Eos % (Auto) 0.1 (0.0-4.3) % Baso % (Auto) 0.7 (0.0-1.8) % Lymph # 1.2 (1.2-5.4) K/mm3 [place] # 0.1 (0.0-0.8) K/mm3 Eos # 0.0 (0.0-0.4) K/mm3 Baso # 0.1 (0.0-0.1) K/mm3 Seg Neutrophils % 86.9 H (40.0-70.0) % Seg Neutrophils # 9.5 H (1.8-7.7) K/mm3 PT (12.2-14.9) Sec. INR (0.87-1.13) Sodium 139 (137-145) mmol/L Potassium 4.3 (3.6-5.0) mmol/L Chloride 101.0 (98-107) mmol/L Carbon Dioxide 18 L (22-30) mmol/L Anion Gap 24 mmol/L BUN 9 (7-17) mg/dL Creatinine 1.0 (0.7-1.2) mg/dL Estimated GFR > 60 ml/min BUN/Creatinine Ratio 9.00 % Glucose 246 H (65-100) mg/dL Calcium 9.2 (8.4-10.2) mg/dL Magnesium 1.70 (1.7-2.3) mg/dL Total Bilirubin < 0.20 (0.1-1.2) mg/dL AST 14 (5-40) units/L ALT 19 (7-56) units/L Alkaline Phosphatase 87 (35-129) units/L Total Creatine Kinase 155 H (30-135) units/L CK-MB (CK-2) 1.8 (0.0-4.0) ng/mL CK-MB (CK-2) Rel Index 1.1 (0-4) Troponin T < 0.010 (0.00-0.029) ng/mL NT-Pro-B Natriuret Pep 171.7 (0-450) pg/mL Total Protein 7.6 (6.3-8.2) g/dL Albumin 4.2 (3.9-5) g/dL Albumin/Globulin Ratio 1.2 % Lipase 24 (13-60) units/L HCG, Qual (Negative) 12/06/16 12/06/16 Range/Units Unknown Unknown WBC (4.5-11.0) K/mm3 RBC (3.65-5.03) M/mm3 Hgb (10.1-14.3) gm/dl Hct (30.3-42.9) % MCV (79-97) fl MCH (28-32) pg MCHC (30-34) % RDW (13.2-15.2) % Plt Count (140-440) K/mm3 Lymph % (Auto) (13.4-35.0) % [place] % (Auto) (0.0-7.3) % Eos % (Auto) (0.0-4.3) % Baso % (Auto) (0.0-1.8) % Lymph # (1.2-5.4) K/mm3 [place] # (0.0-0.8) K/mm3 Eos # (0.0-0.4) K/mm3 Baso # (0.0-0.1) K/mm3 Seg Neutrophils % (40.0-70.0) % Seg Neutrophils # (1.8-7.7) K/mm3 PT 12.4 (12.2-14.9) Sec. INR 0.88 (0.87-1.13) Sodium (137-145) mmol/L Potassium (3.6-5.0) mmol/L Chloride (98-107) mmol/L Carbon Dioxide (22-30) mmol/L Anion Gap mmol/L BUN (7-17) mg/dL Creatinine (0.7-1.2) mg/dL Estimated GFR ml/min BUN/Creatinine Ratio % Glucose (65-100) mg/dL Calcium (8.4-10.2) mg/dL Magnesium (1.7-2.3) mg/dL Total Bilirubin (0.1-1.2) mg/dL AST (5-40) units/L ALT (7-56) units/L Alkaline Phosphatase (35-129) units/L Total Creatine Kinase (30-135) units/L CK-MB (CK-2) (0.0-4.0) ng/mL CK-MB (CK-2) Rel Index (0-4) Troponin T (0.00-0.029) ng/mL NT-Pro-B Natriuret Pep (0-450) pg/mL Total Protein (6.3-8.2) g/dL Albumin (3.9-5) g/dL Albumin/Globulin Ratio % Lipase (13-60) units/L HCG, Qual Negative (Negative) - EKG Data -: EKG Interpreted by Me (sinus tach 143, no ST elevation or T inversion) - EKG Data When compared to previous EKG there are: previous EKG unavailable (10/22/2012 sinus rhythm) - Radiology Data Radiology results: image reviewed (cxr: naf) - Medical Decision Making Plan today patient to hospital. Requiring BiPAP support due to significant asthma exacerbation despite multiple treatments prior to arrival and in the ED. patient's hyperglycemia without known history of diabetes. This may represent no acute diabetes secondary to chronic steroid use - Differential Diagnosis COPD, asthma, pneumonia, bronchitis, PE, unstable angina/OK Critical Care Time: No Critical care attestation.: If time is entered above; I have spent that time in minutes in the direct care of this critically ill patient, excluding procedure time. ED Disposition Clinical Impression: Lupus, Chronic pain, Asthmaticus, status, Sarcoid, Nausea & vomiting, Hyperglycemia Disposition: OP ADMIT IP TO THIS HOSP Is pt being admited?: Yes Condition: Stable Time of Disposition: 02:04 (Dr Sanchez/hosp)
[2016-12-06 01:07] LABS: Creatine Kinase MB 1.8 ng/mL (0.0-4.0)
[2016-12-06 01:09] LABS: Alanine Aminotransferase 19 units/L (7-56); Albumin 4.2 g/dL (3.9-5); Albumin/Globulin Ratio 1.2 %; Alkaline Phosphatase 87 units/L (35-129); Anion Gap 24 mmol/L; Bilirubin,Total < 0.20 mg/dL (0.1-1.2); Blood Urea Nitrogen 9 mg/dL (7-17); Calcium 9.2 mg/dL (8.4-10.2); Carbon Dioxide 18 mmol/L (22-30); Glucose 246 mg/dL (65-100); Potassium 4.3 mmol/L (3.6-5.0); Sodium 139 mmol/L (137-145); Total Protein 7.6 g/dL (6.3-8.2)
[2016-12-06 01:10] LABS: Creatine Kinase 155 units/L (30-135); Lipase 24 units/L (13-60)
[2016-12-06] MEDS ORDERED: DILAUDID ONE (03:01)
[2016-12-06] MEDS ORDERED: DULCOLAX PR PRN (05:23)
[2016-12-06] MEDS ORDERED: TYLENOL PO PRN (05:23)
[2016-12-06] MEDS ORDERED: PROVENTIL IH PRN (05:26)
--- NOTE | 2016-12-06 05:29 | History and Physical Report ---
History of Present Illness Date of examination: 12/06/16 History of present illness: 41-year-old woman with history of hypertension, GERD, sarcoidosis, lupus emergency room with complaints of shortness of breath 4 days. Patient states she has a cough productive of yellow phlegm, she's been unable to tolerate oral intake secondary to multiple episodes of nausea and vomiting. Patient took herself off steroids for 2 months now. She went to see her primary care physician sent her to the emergency room for evaluation Review Of Systems: Constitutional: no weight loss Ears, eyes, nose, mouth and throat: no nasal congestion, no nasal discharge, no sinus pressure, blurry vision, diplopia Neck: No neck pain or rigidity. Cardiovascular: chest pain, orthopnea, palpitations Respiratory:+ shortness of breath, cough Gastrointestinal: abdominal pain, hematochezia Genitourinary : no dysuria, frequency , hematuria Musculoskeletal: no muscle ache Integumentary: no rash, no pruritis Neurological: no parathesias, focal weakness Endocrine: no cold or heat intolerance, no polyuria or polydipsia Hematologic/Lymphatic: no easy bruising, no easy bleeding, no gland swelling Allergic/Immunologic: no urticaria, no angioedema. PAST MEDICAL HISTORY:hypertension, GERD, sarcoidosis, lupus PAST SURGICAL HISTORY: Cholecystectomy, tonsillectomy, adenoidectomy FAMILY HISTORY:hypertension SOCIAL HISTORY: Medications and Allergies Allergies Allergy/AdvReac Type Severity Reaction Status Date / Time aspirin Allergy Rash Verified 06/22/15 09:22 baclofen Allergy Rash Verified 11/09/16 07:23 elliott Allergy Rash Verified 11/09/16 07:23 cephalexin monohydrate Allergy Rash Verified 11/09/16 07:23 [From Keflex] dexamethasone [From Decadron] Allergy Rash Verified 11/12/15 03:24 dexamethasone sod phosphate Allergy Rash Verified 11/12/15 03:24 [From Decadron] droperidol [From Inapsine] Allergy Rash Verified 07/18/16 11:03 fentanyl Allergy Rash Verified 11/09/16 07:23 ipratropium bromide Allergy Rash Verified 11/09/16 07:23 [From Atrovent] ketorolac tromethamine Allergy Rash Verified 11/09/16 07:23 [From Toradol] magnesium Allergy Rash Verified 11/09/16 07:23 meperidine HCl [From Demerol] Allergy Rash Verified 11/09/16 07:23 morphine Allergy Rash Verified 11/09/16 07:23 mushroom Allergy Rash Verified 11/09/16 07:23 naproxen [From Naprosyn] Allergy Swelling Verified 06/22/15 09:22 nut - unspecified Allergy Rash Verified 11/09/16 07:23 ondansetron HCl Allergy Rash Verified 11/09/16 07:23 [From Zofran (as hydrochloride)] Penicillins Allergy Rash Verified 11/09/16 07:23 pregabalin [From Lyrica] Allergy Rash Verified 11/09/16 07:23 prochlorperazine Allergy Rash Verified 11/09/16 07:23 [From Compazine] prochlorperazine edisylate Allergy Rash Verified 11/09/16 07:23 [From Compazine] prochlorperazine maleate Allergy Rash Verified 11/09/16 07:23 [From Compazine] sulfamethoxazole Allergy Rash Verified 06/22/15 09:22 [From Bactrim] sumatriptan [From Imitrex] Allergy Seizure Verified 11/09/16 07:23 sumatriptan succinate Allergy Seizure Verified 11/09/16 07:23 [From Imitrex] trimethoprim [From Bactrim] Allergy Rash Verified 06/22/15 09:22 Home Medications Medication Instructions Recorded Confirmed Last Taken Type Pravastatin Sodium 40 mg PO QDAY 04/27/15 11/10/16 10/06/16 History Albuterol Sulfate [Albuterol 0.63% 0.63 mg IH TID PRN #25 unit 08/05/1510/06/16 Rx NEBS] Fluticasone/Salmeterol [Advair 1 puff IH BID #1 blst.w.dev 11/12/15 11/10/16 Rx Diskus 250-50 mcg] Famotidine [Pepcid] 20 mg PO BID #10 tablet 12/27/15 11/10/16 10/06/16 Rx Promethazine [Phenergan TAB] 50 mg PO TID 02/06/16 11/10/16 10/06/16 History diphenhydrAMINE [Benadryl CAP] 50 mg PO TID 02/06/16 11/10/16 10/06/16 History Levalbuterol HCl [Xopenex] 0.63 mg IH Q6H PRN #30 vial.neb 09/08/16 11/10/16 Rx oxyCODONE /ACETAMINOPHEN [Percocet 1 tab PO Q6HR PRN #10 tablet 09/08/1610/06/16 Rx 5/325] ALBUTEROL Inhaler [ProAir HFA 2 puff IH QID PRN #1 inhalation 10/09/16 11/10/16 Unknown Rx Inhaler] ALPRAZolam [Xanax TAB] 2 mg PO BID 10/09/16 11/10/16 10/06/16 History Zolpidem [Ambien] 10 mg PO QHS 10/09/16 11/10/16 10/06/16 History predniSONE [Deltasone] 20 mg PO QDAY #5 tablet 10/09/16 11/10/16 Unknown Rx ALBUTEROL Inhaler [Proair] 2 puff IH QID PRN 11/09/16 11/09/16 11/08/16 History ALPRAZolam [Xanax TAB] 2 mg PO BID 11/09/16 11/09/16 11/08/16 History Esomeprazole Magnesium [NexIUM] 40 mg PO QDAY 11/09/16 11/09/16 11/08/16 History Fluticasone/Salmeterol [Advair 1 puff IH PRN 11/09/16 11/09/16 11/08/16 History Diskus 500-50 mcg] Indomethacin 50 mg PO BID 11/09/16 11/09/16 11/08/16 History Levalbuterol HCl [Xopenex 1.25 mg IH PRN 11/09/16 11/09/16 11/08/16 History Concentrate] Lisinopril [Zestril TAB] 10 mg PO QDAY 11/09/16 11/09/16 11/08/16 History Methotrexate Sodium [Trexall] 2.5 mg PO DAILY 11/09/16 11/09/16 11/08/16 History Oxycodone HCl/Acetaminophen 1 each PO Q6HR PRN 11/09/16 11/09/16 11/08/16 History [Percocet 10/325 mg] Pravastatin Sodium [Pravastatin] 10 mg PO QHS 11/09/16 11/09/16 11/08/16 History Promethazine [Phenergan TAB] 50 mg PO BID 11/09/16 11/09/16 11/08/16 History diphenhydrAMINE [Benadryl CAP] 50 mg PO BID PRN 11/09/16 11/09/16 11/08/16 History predniSONE [Deltasone] 10 mg PO QDAY 11/09/16 11/09/16 11/08/16 History Active Meds: Active Medications Acetaminophen (Tylenol) 650 mg PO Q4H PRN PRN Reason: Pain MILD(1-3)/Fever >100.5/ARITA Albuterol (Proventil) 2.5 mg IH Q4H PRN PRN Reason: Wheezing Bisacodyl (Dulcolax) 10 mg MT QDAY PRN PRN Reason: Constipation unrelieved by MOM Enoxaparin Sodium (Lovenox) 30 mg SUB-Q QDAY ANA Exam - Physical Exam Narrative exam: Gen. appearance: Patient lying in bed in no acute distress HEENT: Normocephalic/atraumatic, pupils equal round reactive to light, extra alkaline movement intact, no scleral icterus, no JVD or thyromegaly or nodule, neck is supple, mucous membrane moist, no erythema or exudate Heart: S1-S2, regular rate and rhythm Lungs: Wheezing bilateral breathing comfortable Abdomen: Positive bowel sounds, nontender, nondistended, no organomegaly Extremities: No edema, cyanosis, clubbing Neuro:: Oriented 3 , cranial nerves II-12 intact, speech, motor intact Skin: No rash, nodules, warm dry - Constitutional Vitals: Temp Pulse Resp BP Pulse Ox 98.1 F 111 H 28 H 118/73 99 12/05/16 23:57 12/06/16 04:23 12/06/16 04:23 12/06/16 03:46 12/06/16 04:23 Results - Labs CBC & Chem 7: 12/06/16 Unknown 12/06/16 Unknown Labs: Abnormal lab results 12/06/16 12/06/16 12/06/16 Range/Units Unknown Unknown Unknown RDW 16.5 H (13.2-15.2) % Lymph % (Auto) 11.2 L (13.4-35.0) % Seg Neutrophils % 86.9 H (40.0-70.0) % Seg Neutrophils # 9.5 H (1.8-7.7) K/mm3 Carbon Dioxide 18 L (22-30) mmol/L Glucose 246 H (65-100) mg/dL Total Creatine Kinase 155 H (30-135) units/L - Imaging and Cardiology EKG: image reviewed Chest x-ray: image reviewed Assessment and Plan Assessment Respiratory failure on BiPAP, acute Acute asthma exacerbation Sarcoid Lupus Hypertension Plan Admit to medicine Continue BiPAP High-dose steroids, nebulized treatments Check cardiac enzymes, d-dimer Continue appropriate outpatient medication Subjective prophylaxis
[2016-12-06 07:11] LABS: Creatine Kinase MB 1.6 ng/mL (0.0-4.0)
[2016-12-06 07:12] LABS: Creatine Kinase 111 units/L (30-135)
--- NOTE | 2016-12-06 07:37 | XRay Report ---
Single view chest: History: Shortness of breath. Findings: Cardiomegaly. Trachea is midline. No consolidation, pneumothorax or pleural effusion. Stable left venous catheter. Impression: No acute cardiopulmonary findings.
[2016-12-06] MEDS ORDERED: NORCO 10/325 PO PRN (09:10)
--- NOTE | 2016-12-06 09:10 | Admit Criteria Form ---
Admission Criteria Documentation: ASTHMA Clinical Indications for Admission to Inpatient Care ([place]/check or initial the applicable condition/criteria) Admission is indicated for ANY ONE of the following (1)(2)(3)(4): [X]I. Ventilatory support required [ ]II. Peak expiratory flow rate less than 25% of predicted or personal best before treatment [ ]III. Peak expiratory flow rate less than 40% of predicted or personal best after treatment [ ]IV. Peak expiratory flow rate between 40% and 60% of predicted or personal best after treatment, and ANY ONE of the following: [ ]a) History of asthma requiring intubation [ ]b) Hospitalization for asthma within the past year [ ]c) Current or recent use of oral corticosteroids for asthma [ ]d) Use of more than 1 canister of inhaled beta2-agonist in past month [ ]e) Exacerbation due to allergic reaction to food [ ]f) Inadequate access to medical care or medications [ ]g) Adherence to post-discharge asthma regimen cannot be assured (eg, psychosocial problems, poor adherence, no available follow-up care) [ ]V. Hypoxemia [ ]. PaCO2 elevation from baseline by 2 mm Hg (0.27 kPa) or greater [ ]VII. Cyanosis [ ]VIII. Silent chest (absent or markedly diminished breath sounds) [ ]IX. Cardiac dysrhythmia (eg, Bradycardia) [ ]X. Hemodynamic instability [ ]XI. Altered mental status [ ]XII. Radiographic evidence of complication requiring inpatient treatment (eg, pneumonia, pneumothorax) [X ]XIII. Inpatient admission required[A] rather than observation care because of ANY ONE of the following: [X ]a) Respiratory finding that is severe or persistent (eg, dyspnea, Tachypnea, accessory muscle use) [X ]b) Other condition, treatment, or monitoring requiring inpatient admission Extended stay beyond goal length of stay may be needed for (1)(25)(27): [ ]a) Severe respiratory distress or respiratory failure (22)(23)(28)(29) [ ]b) Secondary causes and complications (24) [ ]c) Status asthmaticus [ ]d) Chronic obstructive asthma (eg, asthma-COPD overlap syndrome) (30) [ ]e) Older patients (65 years or older) (28) [ ]f) Slow resolution [ ]g) Clinically significant exacerbation of comorbidities (e.g., congestive heart failure,atrial fibrillation) The original [facility] content created by [facility] has been revised. The portions of the content which have been revised are identified through the use of italic text or in bold, and [facility] has neither reviewed nor approved the modified material. All other unmodified content is copyright [facility] Please see references footnoted in the original [facility] edition 2017 Admission Criteria Met: Yes
[2016-12-06] MEDS: BROVANA NEBU IH SCH ×2 (09:14→19:40)
[2016-12-06] MEDS: PULMICORT IH SCH ×2 (09:15→19:40)
[2016-12-06] MEDS: XANAX PO SCH ×2 (09:29→22:12)
[2016-12-06] MEDS: LOVENOX SUB-Q SCH (09:30)
[2016-12-06] MEDS: PROTONIX PO SCH (09:30)
[2016-12-06] MEDS: PERCOCET 5/325 PO PRN (09:32)
--- NOTE | 2016-12-06 09:45 | Progress Note ---
Assessment and Plan Assessment and plan: 41-year-old woman with past medical history of hypertension, GERD, sarcoidosis, SLE, reports that she self stopped steroids 2 months ago. She now presents with shortness of breath and cough productive of yellow sputum Chest x-ray, image reviewed, no acute findings Pulmonary sarcoidosis exacerbation Treat with steroids, nebulizer, oxygen supplementation, check ABG, pulmonary consult Labs reviewed, d-dimer negative Acute hypoxic respiratory failure continue to wean off bipap Treat underlying cause as above, NIV as needed Hypertension Continue BP meds Chronic pain syndrome/opioid dependence Continue pain meds, patient has been counseled that she will benefit from weaning off these meds in the long-term. DVt ppx lovenox History Interval history: She states her shortness of breath is improved, she has chronic pain and itching from pain meds. States that she is allergic to most pain medications. Hospitalist Physical - Physical exam Narrative exam: General.: Appears well, no distress, nontoxic HEENT: Moist mucous membranes, extraocular muscles intact, no lymphadenopathy Neck: supple Cardiac: S1-S2 heard Lungs: clear to auscultation bilaterally Abdomen: soft , nontender, nondistended, bowel sounds positive Extremities: no edema clubbing or cyanosis Skin: no rash or lesions Neurologic: no gross focal deficits Psych: appropriate behavior, appropriate mood, corporative, judgment intact - Constitutional Vitals: Temp Pulse Resp BP Pulse Ox 98.1 F 110 H 20 118/73 97 12/05/16 23:57 12/06/16 09:28 12/06/16 09:28 12/06/16 03:46 12/06/16 09:31 Results - Labs CBC & Chem 7: 12/07/16 06:25 12/07/16 06:25 Labs: Laboratory Last Values WBC 10.9 K/mm3 (4.5-11.0) 12/06/16 Unknown RBC 4.46 M/mm3 (3.65-5.03) 12/06/16 Unknown Hgb 12.4 gm/dl (10.1-14.3) 12/06/16 Unknown Hct 37.8 % (30.3-42.9) 12/06/16 Unknown MCV 85 fl (79-97) 12/06/16 Unknown MCH 28 pg (28-32) 12/06/16 Unknown MCHC 33 % (30-34) 12/06/16 Unknown RDW 16.5 % (13.2-15.2) H 12/06/16 Unknown Plt Count 226 K/mm3 (140-440) 12/06/16 Unknown Lymph % (Auto) 11.2 % (13.4-35.0) L 12/06/16 Unknown [place] % (Auto) 1.1 % (0.0-7.3) 12/06/16 Unknown Eos % (Auto) 0.1 % (0.0-4.3) 12/06/16 Unknown Baso % (Auto) 0.7 % (0.0-1.8) 12/06/16 Unknown Lymph # 1.2 K/mm3 (1.2-5.4) 12/06/16 Unknown [place] # 0.1 K/mm3 (0.0-0.8) 12/06/16 Unknown Eos # 0.0 K/mm3 (0.0-0.4) 12/06/16 Unknown Baso # 0.1 K/mm3 (0.0-0.1) 12/06/16 Unknown Seg Neutrophils % 86.9 % (40.0-70.0) H 12/06/16 Unknown Seg Neutrophils # 9.5 K/mm3 (1.8-7.7) H 12/06/16 Unknown PT 12.4 Sec. (12.2-14.9) 12/06/16 Unknown INR 0.88 (0.87-1.13) 12/06/16 Unknown D-Dimer 238.94 ng/mlDDU (0-234) H 12/06/16 Unknown Sodium 139 mmol/L (137-145) 12/06/16 Unknown Potassium 4.3 mmol/L (3.6-5.0) 12/06/16 Unknown Chloride 101.0 mmol/L (98-107) 12/06/16 Unknown Carbon Dioxide 18 mmol/L (22-30) L 12/06/16 Unknown Anion Gap 24 mmol/L 12/06/16 Unknown BUN 9 mg/dL (7-17) 12/06/16 Unknown Creatinine 1.0 mg/dL (0.7-1.2) 12/06/16 Unknown Estimated GFR > 60 ml/min 12/06/16 Unknown BUN/Creatinine Ratio 9.00 % 12/06/16 Unknown Glucose 246 mg/dL (65-100) H 12/06/16 Unknown Calcium 9.2 mg/dL (8.4-10.2) 12/06/16 Unknown Magnesium 1.70 mg/dL (1.7-2.3) 12/06/16 Unknown Total Bilirubin < 0.20 mg/dL (0.1-1.2) 12/06/16 Unknown AST 14 units/L (5-40) 12/06/16 Unknown ALT 19 units/L (7-56) 12/06/16 Unknown Alkaline Phosphatase 87 units/L (35-129) 12/06/16 Unknown Total Creatine Kinase 111 units/L (30-135) 12/06/16 Unknown CK-MB (CK-2) 1.6 ng/mL (0.0-4.0) 12/06/16 Unknown CK-MB (CK-2) Rel Index 1.4 (0-4) 12/06/16 Unknown Troponin T < 0.010 ng/mL (0.00-0.029) 12/06/16 Unknown NT-Pro-B Natriuret Pep 171.7 pg/mL (0-450) 12/06/16 Unknown Total Protein 7.6 g/dL (6.3-8.2) 12/06/16 Unknown Albumin 4.2 g/dL (3.9-5) 12/06/16 Unknown Albumin/Globulin Ratio 1.2 % 12/06/16 Unknown Lipase 24 units/L (13-60) 12/06/16 Unknown HCG, Qual Negative (Negative) 12/06/16 Unknown
[2016-12-06] MEDS ORDERED: NON-FORMULARY (Fluticasone/Salmeterol [Advair Diskus 250-50 Mcg] 1 PUFF) IH SCH (10:00)
[2016-12-06] MEDS ORDERED: NON-FORMULARY (Alprazolam [Xanax Tab] 2 MG) PO SCH (10:00)
[2016-12-06] MEDS ORDERED: METHOTREXATE SODIUM 2.5 MG PO SCH (10:00)
[2016-12-06] MEDS ORDERED: LOVENOX SUB-Q SCH (10:00)
[2016-12-06] MEDS ORDERED: NON-FORMULARY (Esomeprazole Magnesium [Nexium] 40 MG) PO SCH (10:00)
[2016-12-06] MEDS ORDERED: ZOFRAN IV PRN (10:35)
[2016-12-06] MEDS: ZESTRIL PO SCH (11:14)
--- NOTE | 2016-12-06 12:29 | Consultation ---
History of Present Illness Consult date: 12/06/16 Requesting physician: SHOLA MUIR Reason for consult: other (Sarcoid) History of present illness: 41 y/o female, multiple admissions to this hospital for dyspnea, admitted again with same complaints. Sats are stable on room air. no auditory wheeze. Patient has several allergies to very common medications. Patient very upset as she has not been placed on her home regimen of pain medication. She has spoken continuously throughout the interview, not allowing me to ask many questions and does not appear to be short of breath or in any distress. Remainder of the review is not obtainable as she does not answer the questions that are asked. It is unclear but she may have been followed by a parts cataloguer in the past but currently she is not. Also she states that her sarcoid is biopsy proven from 2004. Medications and Allergies Allergies Allergy/AdvReac Type Severity Reaction Status Date / Time aspirin Allergy Rash Verified 06/22/15 09:22 baclofen Allergy Rash Verified 11/09/16 07:23 elliott Allergy Rash Verified 11/09/16 07:23 cephalexin monohydrate Allergy Rash Verified 11/09/16 07:23 [From Keflex] dexamethasone [From Decadron] Allergy Rash Verified 11/12/15 03:24 dexamethasone sod phosphate Allergy Rash Verified 11/12/15 03:24 [From Decadron] droperidol [From Inapsine] Allergy Rash Verified 07/18/16 11:03 fentanyl Allergy Rash Verified 11/09/16 07:23 ipratropium bromide Allergy Rash Verified 11/09/16 07:23 [From Atrovent] ketorolac tromethamine Allergy Rash Verified 11/09/16 07:23 [From Toradol] lorazepam [From Ativan] Allergy Swelling Verified 12/06/16 11:17 magnesium Allergy Rash Verified 11/09/16 07:23 meperidine HCl [From Demerol] Allergy Rash Verified 11/09/16 07:23 morphine Allergy Rash Verified 11/09/16 07:23 mushroom Allergy Rash Verified 11/09/16 07:23 naproxen [From Naprosyn] Allergy Swelling Verified 06/22/15 09:22 nut - unspecified Allergy Rash Verified 11/09/16 07:23 ondansetron HCl Allergy Rash Verified 11/09/16 07:23 [From Zofran (as hydrochloride)] Penicillins Allergy Rash Verified 11/09/16 07:23 pregabalin [From Lyrica] Allergy Rash Verified 11/09/16 07:23 prochlorperazine Allergy Rash Verified 11/09/16 07:23 [From Compazine] prochlorperazine edisylate Allergy Rash Verified 11/09/16 07:23 [From Compazine] prochlorperazine maleate Allergy Rash Verified 11/09/16 07:23 [From Compazine] sulfamethoxazole Allergy Rash Verified 06/22/15 09:22 [From Bactrim] sumatriptan [From Imitrex] Allergy Seizure Verified 11/09/16 07:23 sumatriptan succinate Allergy Seizure Verified 11/09/16 07:23 [From Imitrex] trimethoprim [From Bactrim] Allergy Rash Verified 06/22/15 09:22 Home Medications Medication Instructions Recorded Confirmed Last Taken Type Pravastatin Sodium 40 mg PO QDAY 04/27/15 11/10/16 10/06/16 History Albuterol Sulfate [Albuterol 0.63% 0.63 mg IH TID PRN #25 unit 08/05/1510/06/16 Rx NEBS] Fluticasone/Salmeterol [Advair 1 puff IH BID #1 blst.w.dev 11/12/15 11/10/16 Rx Diskus 250-50 mcg] Famotidine [Pepcid] 20 mg PO BID #10 tablet 12/27/15 11/10/16 10/06/16 Rx Promethazine [Phenergan TAB] 50 mg PO TID 02/06/16 11/10/16 10/06/16 History diphenhydrAMINE [Benadryl CAP] 50 mg PO TID 02/06/16 11/10/16 10/06/16 History Levalbuterol HCl [Xopenex] 0.63 mg IH Q6H PRN #30 vial.neb 09/08/16 11/10/16 Rx oxyCODONE /ACETAMINOPHEN [Percocet 1 tab PO Q6HR PRN #10 tablet 09/08/1610/06/16 Rx 5/325] ALBUTEROL Inhaler [ProAir HFA 2 puff IH QID PRN #1 inhalation 10/09/16 11/10/16 Unknown Rx Inhaler] ALPRAZolam [Xanax TAB] 2 mg PO BID 10/09/16 11/10/16 10/06/16 History Zolpidem [Ambien] 10 mg PO QHS 10/09/16 11/10/16 10/06/16 History predniSONE [Deltasone] 20 mg PO QDAY #5 tablet 10/09/16 11/10/16 Unknown Rx ALBUTEROL Inhaler [Proair] 2 puff IH QID PRN 11/09/16 11/09/16 11/08/16 History ALPRAZolam [Xanax TAB] 2 mg PO BID 11/09/16 11/09/16 11/08/16 History Esomeprazole Magnesium [NexIUM] 40 mg PO QDAY 11/09/16 11/09/16 11/08/16 History Fluticasone/Salmeterol [Advair 1 puff IH PRN 11/09/16 11/09/16 11/08/16 History Diskus 500-50 mcg] Indomethacin 50 mg PO BID 11/09/16 11/09/16 11/08/16 History Levalbuterol HCl [Xopenex 1.25 mg IH PRN 11/09/16 11/09/16 11/08/16 History Concentrate] Lisinopril [Zestril TAB] 10 mg PO QDAY 11/09/16 11/09/16 11/08/16 History Methotrexate Sodium [Trexall] 2.5 mg PO DAILY 11/09/16 11/09/16 11/08/16 History Oxycodone HCl/Acetaminophen 1 each PO Q6HR PRN 11/09/16 11/09/16 11/08/16 History [Percocet 10/325 mg] Pravastatin Sodium [Pravastatin] 10 mg PO QHS 11/09/16 11/09/16 11/08/16 History Promethazine [Phenergan TAB] 50 mg PO BID 11/09/16 11/09/16 11/08/16 History diphenhydrAMINE [Benadryl CAP] 50 mg PO BID PRN 11/09/16 11/09/16 11/08/16 History predniSONE [Deltasone] 10 mg PO QDAY 11/09/16 11/09/16 11/08/16 History Active Meds: Active Medications Acetaminophen (Tylenol) 650 mg PO Q4H PRN PRN Reason: Pain MILD(1-3)/Fever >100.5/ARITA Acetaminophen/Hydrocodone Bitart ([place] 10/325) 1 each PO Q6H PRN PRN Reason: Pain, Moderate (4-6) Albuterol (Proventil) 2.5 mg IH Q4H PRN PRN Reason: Wheezing Albuterol/Ipratropium (Duoneb *Not For Prn Use*) 1 ampul IH Q6HRT [facility] Alprazolam (Xanax) 2 mg PO BID [facility] Last Admin: 12/06/16 09:29 Dose: 2 mg Arformoterol Tartrate (Brovana Nebu) 15 mcg IH Q12HRT [facility] [place] Last Admin: 12/06/16 09:14 Dose: 15 mcg Bisacodyl (Dulcolax) 10 mg AK QDAY PRN PRN Reason: Constipation unrelieved by MOM Budesonide (Pulmicort) 0.5 mg IH Q12HRT [facility] Last Admin: 12/06/16 09:15 Dose: 0.5 mg Diphenhydramine HCl (Benadryl) 25 mg PO Q6H PRN PRN Reason: Itching Enoxaparin Sodium (Lovenox) 40 mg SUB-Q QDAY@1000 [facility] Last Admin: 12/06/16 09:30 Dose: 40 mg Hydromorphone HCl (Dilaudid) 1 mg IV Q4H PRN PRN Reason: Pain , Severe (7-10) Lisinopril (Zestril) 10 mg PO QDAY [facility] Last Admin: 12/06/16 11:14 Dose: Not Given Methylprednisolone Sodium Succinate (Solu-Medrol) 40 mg IV Q8HR [facility] Miscellaneous Medication (Methotrexate Sodium [Trexall]) 2.5 mg PO DAILY [facility] Oxycodone/Acetaminophen (Percocet 5/325) 1 tab PO Q6HR PRN PRN Reason: Pain Last Admin: 12/06/16 09:32 Dose: 1 tab Pantoprazole Sodium (Protonix) 40 mg PO DAILY [facility] Last Admin: 12/06/16 09:30 Dose: 40 mg Promethazine HCl (Phenergan) 25 mg PO Q6H PRN PRN Reason: Nausea And Vomiting Simvastatin (Zocor) 10 mg PO QHS ANA Physical Examination Vital signs: Vital Signs Pulse Ox 96 12/05/16 23:41 General appearance: no acute distress, alert, other (obese) Eyes: non-icteric ENT: oropharynx moist Neck: supple, other (large in circumference) Effort: normal Ascultation: Bilateral: clear Percussion: Right: not dull Cardiovascular: regular rate and rhythm Gastrointestinal: normoactive bowel sounds, soft Extremities: no cyanosis, no edema Results - Laboratory Findings CBC and BMP: 12/06/16 Unknown 12/06/16 Unknown PT/INR, D-dimer PT 12.4 Sec. (12.2-14.9) 12/06/16 Unknown INR 0.88 (0.87-1.13) 12/06/16 Unknown D-Dimer 238.94 ng/mlDDU (0-234) H 12/06/16 Unknown Abnormal lab findings: Abnormal Labs 12/06/16 12/06/16 12/06/16 Unknown Unknown Unknown RDW 16.5 H Lymph % (Auto) 11.2 L Seg Neutrophils % 86.9 H Seg Neutrophils # 9.5 H D-Dimer Carbon Dioxide 18 L Glucose 246 H Total Creatine Kinase 155 H 12/06/16 Unknown RDW Lymph % (Auto) Seg Neutrophils % Seg Neutrophils # D-Dimer 238.94 H Carbon Dioxide Glucose Total Creatine Kinase - Diagnostic Findings Chest x-ray: image reviewed (no acute evidence of intraparenchymal lung disease) Assessment and Plan 41 y/o female with sarcoid per her report admitted with dyspnea. 1. Patient has refused ABG per RT discussion earlier this am 2. Patient state that she weaned herself of prednisone 2 months ago secondary to weight gain. Her lung sarcoid does not appear to be in an acute flare at present. Would switch to Prednisone and taper off 3. Could not find a mycin allergy, could discharge on Z-pack if not allergic 4. No further recommendations from a lung stand point. She is on several outpatient meds for obstructive lung disease. Unclear if she takes them regularly or not. She can follow up with her PCP who prescribes them.
[2016-12-06] MEDS: BENADRYL PO PRN ×3 (12:30→22:12)
[2016-12-06] MEDS: PHENERGAN PO PRN ×2 (12:30→18:47)
[2016-12-06] MEDS: DILAUDID IV PRN ×3 (12:31→22:11)
[2016-12-06 13:38] LABS: Creatine Kinase MB 2.2 ng/mL (0.0-4.0)
[2016-12-06 13:39] LABS: Creatine Kinase 119 units/L (30-135)
[2016-12-06] MEDS: DUONEB *Not for PRN Use IH SCH ×2 (14:00→14:29)
[2016-12-06] MEDS: XOPENEX IH SCH ×2 (14:31→19:40)
[2016-12-06 16:08] LABS: ISTAT Base Excess -1; ISTAT HCO3 23.3; ISTAT PCO2 36.3 (35-45); ISTAT PH 7.415 (7.35-7.45); ISTAT PO2 70 (80-105); ISTAT SO2 94; ISTAT TCO2 24
[2016-12-06] MEDS ORDERED: BENADRYL PO PRN (19:21)
[2016-12-06] MEDS ORDERED: ZOCOR PO SCH (22:00)
[2016-12-06] MEDS ORDERED: NON-FORMULARY (Pravastatin Sodium [Pravastatin] 10 MG) PO SCH (22:00)
[2016-12-07] MEDS: XOPENEX IH SCH ×5 (02:00→14:00)
[2016-12-07] MEDS: PHENERGAN PO PRN ×2 (02:07→09:58)
[2016-12-07] MEDS: DILAUDID IV PRN ×3 (02:09→09:59)
[2016-12-07] MEDS ORDERED: DILAUDID IV ONE (03:36)
[2016-12-07] MEDS: BENADRYL PO PRN (06:09)
[2016-12-07] MEDS: BROVANA NEBU IH SCH ×2 (06:41→08:00)
[2016-12-07] MEDS: PULMICORT IH SCH ×2 (06:41→08:00)
[2016-12-07 06:51] LABS: Basophils % (Auto) 0.1 % (0.0-1.8); Hematocrit 36.1 % (30.3-42.9); Hemoglobin 11.8 gm/dl (10.1-14.3); Mean Corpuscular HGB Conc 33 % (30-34); Mean Corpuscular Hemoglobin 28 pg (28-32); Mean Corpuscular Volume 85 fl (79-97); Platelet Count 229 K/mm3 (140-440); Red Blood Count 4.25 M/mm3 (3.65-5.03); Red Cell Distribution Width 16.9 % (13.2-15.2); White Blood Count 13.6 K/mm3 (4.5-11.0)
[2016-12-07 07:13] LABS: Anion Gap 20 mmol/L; Blood Urea Nitrogen 12 mg/dL (7-17); Calcium 8.9 mg/dL (8.4-10.2); Carbon Dioxide 23 mmol/L (22-30); Chloride 103.3 mmol/L (98-107); Glucose 119 mg/dL (65-100); Potassium 4.1 mmol/L (3.6-5.0); Sodium 142 mmol/L (137-145)
[2016-12-07 07:44] VITALS: BP 145/93
[2016-12-07] MEDS ORDERED: ATARAX PO PRN (07:56)
[2016-12-07] MEDS ORDERED: BENADRYL PO PRN (08:03)
--- NOTE | 2016-12-07 08:06 | Progress Note ---
Assessment and Plan Assessment and plan: 41-year-old woman with past medical history of hypertension, GERD, sarcoidosis, SLE, reports that she self stopped steroids 2 months ago. She now presents with shortness of breath and cough productive of yellow sputum Chest x-ray, image reviewed, no acute findings Pulmonary sarcoidosis exacerbation Treat with steroids, nebulizer, oxygen supplementation, check ABG, pulmonary consult Labs reviewed, d-dimer negative Acute hypoxic respiratory failure continue to wean off bipap Treat underlying cause as above, NIV as needed Hypertension Continue BP meds Chronic pain syndrome/opioid dependence Continue pain meds, patient has been counseled that she will benefit from weaning off these meds in the long-term. DVt ppx lovenox Tentative discharge home tomorrow if she continues to improve History Interval history: She states her shortness of breath is improved, she has chronic pain and itching from pain meds. States that she is allergic to most pain medications. Hospitalist Physical - Physical exam Narrative exam: General.: Appears well, no distress, nontoxic HEENT: Moist mucous membranes, extraocular muscles intact, no lymphadenopathy Neck: supple Cardiac: S1-S2 heard Lungs: clear to auscultation bilaterally Abdomen: soft , nontender, nondistended, bowel sounds positive Extremities: no edema clubbing or cyanosis Skin: no rash or lesions Neurologic: no gross focal deficits Psych: appropriate behavior, appropriate mood, corporative, judgment intact - Constitutional Vitals: Temp Pulse Resp BP Pulse Ox 97.7 F 93 H 18 145/93 94 12/07/16 07:42 12/07/16 07:42 12/07/16 07:42 12/07/16 07:42 12/07/16 07:42 Results - Labs CBC & Chem 7: 12/07/16 06:25 12/07/16 06:25 Labs: Laboratory Last Values WBC 13.6 K/mm3 (4.5-11.0) H 12/07/16 06:25 RBC 4.25 M/mm3 (3.65-5.03) 12/07/16 06:25 Hgb 11.8 gm/dl (10.1-14.3) 12/07/16 06:25 Hct 36.1 % (30.3-42.9) 12/07/16 06:25 MCV 85 fl (79-97) 12/07/16 06:25 MCH 28 pg (28-32) 12/07/16 06:25 MCHC 33 % (30-34) 12/07/16 06:25 RDW 16.9 % (13.2-15.2) H 12/07/16 06:25 Plt Count 229 K/mm3 (140-440) 12/07/16 06:25 Lymph % (Auto) 9.0 % (13.4-35.0) L 12/07/16 06:25 [place] % (Auto) 3.7 % (0.0-7.3) 12/07/16 06:25 Eos % (Auto) 0.0 % (0.0-4.3) 12/07/16 06:25 Baso % (Auto) 0.1 % (0.0-1.8) 12/07/16 06:25 Lymph # 1.2 K/mm3 (1.2-5.4) 12/07/16 06:25 [place] # 0.5 K/mm3 (0.0-0.8) 12/07/16 06:25 Eos # 0.0 K/mm3 (0.0-0.4) 12/07/16 06:25 Baso # 0.0 K/mm3 (0.0-0.1) 12/07/16 06:25 Seg Neutrophils % 87.2 % (40.0-70.0) H 12/07/16 06:25 Seg Neutrophils # 11.8 K/mm3 (1.8-7.7) H 12/07/16 06:25 PT 12.4 Sec. (12.2-14.9) 12/06/16 Unknown INR 0.88 (0.87-1.13) 12/06/16 Unknown D-Dimer 238.94 ng/mlDDU (0-234) H 12/06/16 Unknown POC ABG pH 7.415 (7.35-7.45) 12/06/16 16:05 POC ABG pCO2 36.3 (35-45) 12/06/16 16:05 POC ABG pO2 70 (80-105) L 12/06/16 16:05 POC ABG HCO3 23.3 12/06/16 16:05 POC ABG Total CO2 24 12/06/16 16:05 POC ABG O2 Sat 94 12/06/16 16:05 POC ABG Base Excess -1 12/06/16 16:05 FiO2 2 % 12/06/16 16:05 Sodium 142 mmol/L (137-145) 12/07/16 06:25 Potassium 4.1 mmol/L (3.6-5.0) 12/07/16 06:25 Chloride 103.3 mmol/L (98-107) 12/07/16 06:25 Carbon Dioxide 23 mmol/L (22-30) 12/07/16 06:25 Anion Gap 20 mmol/L 12/07/16 06:25 BUN 12 mg/dL (7-17) 12/07/16 06:25 Creatinine 0.8 mg/dL (0.7-1.2) 12/07/16 06:25 Estimated GFR > 60 ml/min 12/07/16 06:25 BUN/Creatinine Ratio 15.00 % 12/07/16 06:25 Glucose 119 mg/dL (65-100) H 12/07/16 06:25 Calcium 8.9 mg/dL (8.4-10.2) 12/07/16 06:25 Magnesium 1.70 mg/dL (1.7-2.3) 12/06/16 Unknown Total Bilirubin < 0.20 mg/dL (0.1-1.2) 12/06/16 Unknown AST 14 units/L (5-40) 12/06/16 Unknown ALT 19 units/L (7-56) 12/06/16 Unknown Alkaline Phosphatase 87 units/L (35-129) 12/06/16 Unknown Total Creatine Kinase 111 units/L (30-135) 12/06/16 Unknown CK-MB (CK-2) 1.6 ng/mL (0.0-4.0) 12/06/16 Unknown CK-MB (CK-2) Rel Index 1.4 (0-4) 12/06/16 Unknown Troponin T < 0.010 ng/mL (0.00-0.029) 12/06/16 Unknown NT-Pro-B Natriuret Pep 171.7 pg/mL (0-450) 12/06/16 Unknown Total Protein 7.6 g/dL (6.3-8.2) 12/06/16 Unknown Albumin 4.2 g/dL (3.9-5) 09/15/17 Unknown Albumin/Globulin Ratio 1.2 % 12/06/16 Unknown Lipase 24 units/L (13-60) 12/06/16 Unknown HCG, Qual Negative (Negative) 12/06/16 Unknown
[2016-12-07] MEDS: LOVENOX SUB-Q SCH (09:55)
[2016-12-07] MEDS: PROTONIX PO SCH (09:55)
[2016-12-07] MEDS: XANAX PO SCH (09:55)
[2016-12-07] MEDS: ZESTRIL PO SCH (10:08)
[2016-12-07] MEDS: PERCOCET 5/325 PO PRN ×2 (13:18→13:40)
--- NOTE | 2016-12-07 14:18 | Discharge Summary ---
Providers - Providers Date of Admission: 12/06/16 04:39 Attending physician: SHOLA MUIR MD Primary care physician: METAL ENGRAVER Hospitalization Condition: Stable Hospital course: 41-year-old woman with past medical history of hypertension, GERD, sarcoidosis, SLE, reports that she self stopped steroids 2 months ago. She now presents with shortness of breath and cough productive of yellow sputum Chest x-ray, image reviewed, no acute findings Pulmonary sarcoidosis exacerbation Treat with steroids, nebulizer, oxygen supplementation, check ABG, pulmonary consult Labs reviewed, d-dimer negative Acute hypoxic respiratory failure continue to wean off bipap Treat underlying cause as above, NIV as needed Hypertension Continue BP meds Chronic pain syndrome/opioid dependence Continue pain meds, patient has been counseled that she will benefit from weaning off these meds in the long-term. DVt ppx lovenox Tentative discharge home tomorrow if she continues to improve Disposition: DC-01 TO HOME OR SELFCARE Time spent for discharge: 33 minutes Core Measure Documentation - Palliative Care Palliative Care/ Comfort Measures: Not Applicable - Core Measures Any of the following diagnoses?: none Exam - Constitutional Vitals: Temp Pulse Resp BP Pulse Ox 97.7 F 72 20 145/93 96 12/07/16 07:42 12/07/16 13:15 12/07/16 13:15 12/07/16 07:42 12/07/16 08:05 General appearance: Present: no acute distress, well-nourished - EENT Eyes: Present: PERRL ENT: hearing intact, clear oral mucosa - Neck Neck: Present: supple, normal ROM - Respiratory Respiratory effort: normal Respiratory: bilateral: CTA - Cardiovascular Heart Sounds: Present: S1 & S2. Absent: rub, click - Extremities Extremities: pulses symmetrical, No edema Peripheral Pulses: within normal limits - Abdominal General gastrointestinal: Present: soft, non-tender, non-distended, normal bowel sounds Female genitourinary: Present: normal - Integumentary Integumentary: Present: clear, warm, dry - Musculoskeletal Musculoskeletal: gait normal, strength equal bilaterally - Psychiatric Psychiatric: appropriate mood/affect, intact judgment & insight - Neurologic Neurologic: CNII-XII intact, moves all extremities Plan Prescriptions: Zolpidem [Ambien] 10 mg PO QHS #3 tablet ALPRAZolam [Xanax TAB] 2 mg PO BID #7 tablet diphenhydrAMINE [Benadryl CAP] 50 mg PO TID #14 capsule Levalbuterol 1.25 [Xopenex] 1.25 mg IH Q6HRT #120 nebu oxyCODONE /ACETAMINOPHEN [Percocet 5/325 mg] 1 tab PO Q6HR PRN #10 tablet PRN Reason: Pain predniSONE [Deltasone] 10 mg PO .TAPER #48 tab Promethazine [Phenergan TAB] 25 mg PO Q6H PRN #14 tablet PRN Reason: Nausea And Vomiting
[2016-12-07] MEDS ORDERED: FLUSH HEPARIN IV ONE (14:49)
[2016-12-07] MEDS ORDERED: TRIPLE ANTIBIOTIC TP ONE (15:00)
== END 2016-12-07 16:22 | disposition home or self-care (01) | DRG 196 ==
LOC: ED 23:36 → 3A 12-06 04:39
PROVIDERS: ADMIT Internal Medicine; ATTEND Internal Medicine
PROC: 4A033R1 Measurement of Arterial Saturation, Peripheral, Percutaneous Approach (ICD-10-PCS; principal; 2016-12-06)
PROC: 5A09357 Assistance with Respiratory Ventilation, Less than 24 Consecutive Hours, Continuous Positive Airway Pressure (ICD-10-PCS; 2016-12-06)
DX: D86.89 Sarcoidosis of other sites (principal); J96.01 Acute respiratory failure with hypoxia; J45.901 Unspecified asthma with (acute) exacerbation; F11.20 Opioid dependence, uncomplicated; M32.9 Systemic lupus erythematosus, unspecified; I10 Essential (primary) hypertension; K21.9 Gastro-esophageal reflux disease without esophagitis; M19.90 Unspecified osteoarthritis, unspecified site; F32.9 Major depressive disorder, single episode, unspecified; G89.4 Chronic pain syndrome; Z79.899 Other long term (current) drug therapy; Z88.6 Allergy status to analgesic agent; Z88.5 Allergy status to narcotic agent; Z88.8 Allergy status to other drugs, medicaments and biological substances; Z88.0 Allergy status to penicillin; Z88.2 Allergy status to sulfonamides; G43.909 Migraine, unspecified, not intractable, without status migrainosus; Z87.01 Personal history of pneumonia (recurrent); Z90.49 Acquired absence of other specified parts of digestive tract; Z82.49 Family history of ischemic heart disease and other diseases of the circulatory system
CPT/HCPCS: 36415; 36600; 71010; 80048; 80053; 82550; 82553; 82803; 83690; 83735; 83880; 84484; 84703; 85025; 85379; 85610; 93005; 93010; 94640; 94760; 96361; 96374; 96376; A6250; J1170; J1642; J1650; J2920; J7030; Q0169

== ENCOUNTER 2017-02-08 18:56 | Emergency (ER) | payer MEDICARE ==
[2017-02-08] MEDS ORDERED: PROVENTIL IH ONE (19:03)
[2017-02-08] MEDS ORDERED: NACL 0.9% 1000 ML 1,000 ML IV ONE (19:42)
[2017-02-08] MEDS ORDERED: REGLAN IV ONE (19:45)
--- NOTE | 2017-02-08 19:49 | Emergency Department Report ---
ED Shortness of Breath HPI - General Chief Complaint: Dyspnea/Respdistress Stated Complaint: ASTHMA Time Seen by Provider: 02/08/17 19:36 Source: patient Mode of arrival: Ambulatory Limitations: No Limitations - History of Present Illness Initial Comments: Patient is 41 years old female with history of asthma, lupus and sarcoidosis. Presented to the ER with onset of shortness of breath for the last 3 days. Patient denied any fever or chest pain. She stated that she is being nauseated and been vomiting also. No other complaint. MD Complaint: shortness of breath, cough -: Gradual Severity: moderate Pain Scale: 5 Improves With: bronchodilators Known History Of: asthma - Related Data Home Medications Medication Instructions Recorded Confirmed Last Taken Esomeprazole Magnesium [NexIUM] 40 mg PO QDAY 11/09/16 11/09/16 11/08/16 Lisinopril [Zestril TAB] 10 mg PO QDAY 11/09/16 11/09/16 11/08/16 Methotrexate Sodium [Trexall] 2.5 mg PO DAILY 11/09/16 11/09/16 11/08/16 Pravastatin Sodium [Pravastatin] 10 mg PO QHS 11/09/16 11/09/16 11/08/16 Previous Rx's Medication Instructions Recorded Last Taken Type Fluticasone/Salmeterol [Advair 1 puff IH BID #1 blst.w.dev 11/12/15 10/06/16 Rx Diskus 250-50 mcg] Famotidine [Pepcid] 20 mg PO BID #10 tablet 12/27/15 10/06/16 Rx ALBUTEROL Inhaler [ProAir HFA 2 puff IH QID PRN #1 inhalation 10/09/16 Unknown Rx Inhaler] ALPRAZolam [Xanax TAB] 2 mg PO BID #7 tablet 12/07/16 Unknown Rx Levalbuterol 1.25 [Xopenex] 1.25 mg IH Q6HRT #120 nebu 12/07/16 Unknown Rx Promethazine [Phenergan TAB] 25 mg PO Q6H PRN #14 tablet 12/07/16 Unknown Rx Zolpidem [Ambien] 10 mg PO QHS #3 tablet 12/07/16 Unknown Rx diphenhydrAMINE [Benadryl CAP] 50 mg PO TID #14 capsule 12/07/16 Unknown Rx oxyCODONE /ACETAMINOPHEN [Percocet 1 tab PO Q6HR PRN #10 tablet 12/07/16 Unknown Rx 5/325 mg] predniSONE [Deltasone] 10 mg PO .TAPER #48 tab 12/07/16 Unknown Rx Allergies Allergy/AdvReac Type Severity Reaction Status Date / Time aspirin Allergy Rash Verified 06/22/15 09:22 baclofen Allergy Rash Verified 11/09/16 07:23 elliott Allergy Rash Verified 11/09/16 07:23 cephalexin monohydrate Allergy Rash Verified 11/09/16 07:23 [From Keflex] dexamethasone [From Decadron] Allergy Rash Verified 11/12/15 03:24 dexamethasone sod phosphate Allergy Rash Verified 11/12/15 03:24 [From Decadron] droperidol [From Inapsine] Allergy Rash Verified 07/18/16 11:03 fentanyl Allergy Rash Verified 11/09/16 07:23 ipratropium bromide Allergy Rash Verified 11/09/16 07:23 [From Atrovent] ketorolac tromethamine Allergy Rash Verified 11/09/16 07:23 [From Toradol] lorazepam [From Ativan] Allergy Swelling Verified 12/06/16 11:17 magnesium Allergy Rash Verified 11/09/16 07:23 meperidine HCl [From Demerol] Allergy Rash Verified 11/09/16 07:23 morphine Allergy Rash Verified 11/09/16 07:23 mushroom Allergy Rash Verified 11/09/16 07:23 naproxen [From Naprosyn] Allergy Swelling Verified 06/22/15 09:22 nut - unspecified Allergy Rash Verified 11/09/16 07:23 ondansetron HCl Allergy Rash Verified 11/09/16 07:23 [From Zofran (as hydrochloride)] Penicillins Allergy Rash Verified 11/09/16 07:23 pregabalin [From Lyrica] Allergy Rash Verified 11/09/16 07:23 prochlorperazine Allergy Rash Verified 11/09/16 07:23 [From Compazine] prochlorperazine edisylate Allergy Rash Verified 11/09/16 07:23 [From Compazine] prochlorperazine maleate Allergy Rash Verified 11/09/16 07:23 [From Compazine] sulfamethoxazole Allergy Rash Verified 03/31/16 09:22 [From Bactrim] sumatriptan [From Imitrex] Allergy Seizure Verified 11/09/16 07:23 sumatriptan succinate Allergy Seizure Verified 11/09/16 07:23 [From Imitrex] trimethoprim [From Bactrim] Allergy Rash Verified 06/22/15 09:22 ED Review of Systems ROS: Stated complaint: ASTHMA Other details as noted in HPI Comment: All other systems reviewed and negative ENT: denies: throat pain Respiratory: cough, orthopnea, shortness of breath. denies: SOB with exertion Gastrointestinal: nausea, vomiting. denies: abdominal pain, diarrhea, constipation, hematemesis, melena, hematochezia Skin: denies: rash Neurological: denies: headache, weakness, numbness, paresthesias ED Past Medical Hx - Past Medical History Hx Hypertension: Yes Hx Renal Disease: No Hx Arthritis: Yes Hx Headaches / Migraines: Yes Hx Psychiatric Treatment: Yes (depression) Hx Asthma: Yes Hx HIV: No Additional medical history: Sarcoidosis, chronic pain management, H. yplori, LUPUS. PNEUMONIA - Surgical History Hx Cholecystectomy: Yes Additional Surgical History: Port placement left chest - Social History Smoking Status: Never Smoker - Medications Home Medications: Home Medications Medication Instructions Recorded Confirmed Last Taken Type Fluticasone/Salmeterol [Advair 1 puff IH BID #1 blst.w.dev 11/12/15 11/10/16 Rx Diskus 250-50 mcg] Famotidine [Pepcid] 20 mg PO BID #10 tablet 12/27/15 11/10/16 10/06/16 Rx ALBUTEROL Inhaler [ProAir HFA 2 puff IH QID PRN #1 inhalation 10/09/16 11/10/16 Unknown Rx Inhaler] Esomeprazole Magnesium [NexIUM] 40 mg PO QDAY 11/09/16 11/09/16 11/08/16 History Lisinopril [Zestril TAB] 10 mg PO QDAY 11/09/16 11/09/16 11/08/16 History Methotrexate Sodium [Trexall] 2.5 mg PO DAILY 11/09/16 11/09/16 11/08/16 History Pravastatin Sodium [Pravastatin] 10 mg PO QHS 11/09/16 11/09/16 11/08/16 History ALPRAZolam [Xanax TAB] 2 mg PO BID #7 tablet 12/07/16 Unknown Rx Levalbuterol 1.25 [Xopenex] 1.25 mg IH Q6HRT #120 nebu 12/07/16 Unknown Rx Promethazine [Phenergan TAB] 25 mg PO Q6H PRN #14 tablet 12/07/16 Unknown Rx Zolpidem [Ambien] 10 mg PO QHS #3 tablet 12/07/16 Unknown Rx diphenhydrAMINE [Benadryl CAP] 50 mg PO TID #14 capsule 12/07/16 Unknown Rx oxyCODONE /ACETAMINOPHEN [Percocet 1 tab PO Q6HR PRN #10 tablet 12/07/16 Unknown Rx 5/325 mg] predniSONE [Deltasone] 10 mg PO .TAPER #48 tab 12/07/16 Unknown Rx ED Physical Exam - General Limitations: No Limitations General appearance: alert, in distress (respiratory distress) - Head Head exam: Present: atraumatic, normocephalic - Eye Eye exam: Present: normal appearance - ENT ENT exam: Present: normal exam - Neck Neck exam: Present: normal inspection - Respiratory Respiratory exam: Present: respiratory distress, wheezes, rales, rhonchi, accessory muscle use, decreased breath sounds, prolonged expiratory. Absent: stridor, chest wall tenderness - Cardiovascular Cardiovascular Exam: Present: tachycardia. Absent: systolic murmur, diastolic murmur - GI/Abdominal GI/Abdominal exam: Present: soft, normal bowel sounds. Absent: tenderness, guarding, rebound, rigid, mass, bruit, pulsatile mass - Extremities Exam Extremities exam: Present: normal inspection, normal capillary refill - Back Exam Back exam: Present: normal inspection. Absent: tenderness, CVA tenderness (R), CVA tenderness (L) - Neurological Exam Neurological exam: Present: alert, oriented X3, CN II-XII intact - Skin Skin exam: Present: warm, intact, normal color ED Course Vital Signs 02/08/17 02/08/17 02/08/17 19:00 19:03 19:08 Pulse Rate 136 H 103 H Pulse Rate [ 106 H Anterior Bilateral Throughout] Respiratory 46 H 16 Rate Respiratory 28 H Rate [Anterior Bilateral Throughout] Blood Pressure 144/112 Blood Pressure 128/72 [Left] O2 Sat by Pulse 99 97 Oximetry 02/08/17 19:42 Pulse Rate Pulse Rate [ 111 H Anterior Bilateral Throughout] Respiratory Rate Respiratory 14 Rate [Anterior Bilateral Throughout] Blood Pressure Blood Pressure [Left] O2 Sat by Pulse Oximetry - Reevaluation(s) Reevaluation #1: 02/08/17 21:14 Patient left AGAINST MEDICAL ADVICE 2 weeks and then to the need that she needed to be admitted for further treatment but patient stated she just wanted to go home. Patient is able to make a sound decision. She is alert and oriented 3 with stable vital signs. I advised the patient to return to the ER if her symptoms get worse. ED Medical Decision Making - Lab Data Result diagrams: 02/08/17 19:30 02/08/17 19:30 Critical care attestation.: If time is entered above; I have spent that time in minutes in the direct care of this critically ill patient, excluding procedure time. ED Disposition Clinical Impression: Acute asthma exacerbation Disposition: DC-07 LEFT AGAINST MED ADVICE Is pt being admited?: No Condition: Stable
[2017-02-08 20:07] LABS: Eosinophils % (Auto) 0.8 % (0.0-4.3); Hematocrit 37.3 % (30.3-42.9); Hemoglobin 12.4 gm/dl (10.1-14.3); Mean Corpuscular HGB Conc 33 % (30-34); Mean Corpuscular Hemoglobin 29 pg (28-32); Mean Corpuscular Volume 87 fl (79-97); Platelet Count 183 K/mm3 (140-440); Red Blood Count 4.32 M/mm3 (3.65-5.03); Red Cell Distribution Width 17.7 % (13.2-15.2); White Blood Count 7.9 K/mm3 (4.5-11.0)
[2017-02-08 20:08] VITALS: BP 128/72
[2017-02-08 20:14] LABS: Albumin 3.9 g/dL (3.9-5); Albumin/Globulin Ratio 1.4 %; Alkaline Phosphatase 81 units/L (35-129); Anion Gap 17 mmol/L; BUN/Creatinine Ratio 10; Bilirubin,Total < 0.20 mg/dL (0.1-1.2); Blood Urea Nitrogen 8 mg/dL (7-17); Carbon Dioxide 24 mmol/L (22-30); Chloride 103.4 mmol/L (98-107); Glucose 104 mg/dL (65-100); Potassium 4.1 mmol/L (3.6-5.0); Sodium 140 mmol/L (137-145); Total Protein 6.7 g/dL (6.3-8.2)
[2017-02-08 20:47] LABS: Alanine Aminotransferase < 5 units/L (7-56)
--- NOTE | 2017-02-08 21:01 | XRay Report ---
FINAL REPORT EXAM: XR CHEST 1V AP HISTORY: Dyspnea TECHNIQUE: upright single view chest PRIORS: None. FINDINGS: Cardiac and mediastinal contours are unremarkable. No focal pulmonary infiltrate is identified. No pleural fluid collection seen. Pulmonary vasculature is unremarkable. Left chest port catheter tip at the SVC. IMPRESSION: Negative single-view chest
== END 2017-02-08 21:05 | disposition left against medical advice (07) ==
LOC: ED 18:56
DX: J45.901 Unspecified asthma with (acute) exacerbation (principal); I10 Essential (primary) hypertension; M19.90 Unspecified osteoarthritis, unspecified site; G43.909 Migraine, unspecified, not intractable, without status migrainosus; Z79.82 Long term (current) use of aspirin
CPT/HCPCS: 36415; 71010; 80053; 82140; 85025; 87040; 94640; 96360; 99284; J7030; J2765

== ENCOUNTER 2017-03-31 05:27 | Emergency (ER) | payer MEDICARE ==
[2017-03-31] MEDS ORDERED: PROVENTIL IH ONE (06:12)
== END 2017-03-31 07:20 | disposition left against medical advice (07) ==
LOC: ED 05:27
DX: R11.2 Nausea with vomiting, unspecified (principal); Z53.21 Procedure and treatment not carried out due to patient leaving prior to being seen by health care provider

== ENCOUNTER 2017-06-13 16:05 | Emergency (ER) | payer MEDICARE ==
[2017-06-13 16:33] VITALS: BP 154/97
== END 2017-06-13 21:00 | disposition left against medical advice (07) ==
LOC: ED 16:05
DX: R10.30 Lower abdominal pain, unspecified (principal); Z53.21 Procedure and treatment not carried out due to patient leaving prior to being seen by health care provider

== ENCOUNTER 2017-12-04 21:18 | Emergency (ER) | payer MEDICARE ==
[2017-12-04 21:49] VITALS: BP 129/82
== END 2017-12-04 23:10 | disposition left against medical advice (07) ==
LOC: ED 21:18
DX: Z00.8 Encounter for other general examination (principal); Z53.21 Procedure and treatment not carried out due to patient leaving prior to being seen by health care provider
CPT/HCPCS: 93005; 93010

== ENCOUNTER 2018-11-04 09:20 | Day surgery (SDC) | payer MEDICARE ==
[~2018-11-04 09:20] MED LIST: DIPRIVAN 10 MG/ML IV ONE
[2018-11-04] MEDS ORDERED: XYLOCAINE MPF 2% ONE (10:00)
[2018-11-04] MEDS ORDERED: NACL 0.9% 1000 ML 1,000 ML ONE (10:25)
[2018-11-04] MEDS ORDERED: NACL 0.9% 1000 ML 1,000 ML IV SCH (12:00)
[2018-11-04] MEDS ORDERED: WATER FOR IRRIG STERILE IR ONE (12:07)
--- NOTE | 2018-11-04 12:18 | Anesthesia Consultation ---
Anesthesia Consult and Med Hx - Airway Anesthetic Teeth Evaluation: Good ROM Head & Neck: Adequate Mental/Hyoid Distance: Adequate Mallampati Class: Class III Intubation Access Assessment: Probably Good - Pulmonary Exam CTA: Yes - Cardiac Exam Cardiac Exam: RRR - Pre-Operative Health Status ASA Pre-Surgery Classification: ASA3 Proposed Anesthetic Plan: General, MAC - Pulmonary Hx Smoking: No Hx Asthma: Yes SOB: Yes Hx Sleep Apnea: Yes (does not use cpap) - Cardiovascular System Hx Hypertension: Yes Hx Coronary Artery Disease: No Hx Angina: No Hx Cardia Arrhythmia: No Hx Pacemaker: No Hx Internal Defibrillator: No Hx Heart Murmur: No - Central Nervous System Hx Psychiatric Problems: Yes - Gastrointestinal Hx Ulcer: Yes Hx Gastroesophageal Reflux Disease: Yes (occassional) - Endocrine Hx Renal Disease: No Hx Non-Insulin Dependent Diabetes: No Hx Thyroid Disease: No - Hematic Hx Anemia: Yes - Other Systems Hx Obesity: Yes
--- NOTE | 2018-11-04 12:19 | Anesthesia Day of Surgery ---
Anesthesia Day of Surgery - Day of Surgery Patient Examined: Yes Patient H&P Reviewed: Yes Patient is NPO: Yes Suraj's Test: N/A
[2018-11-04] MEDS ORDERED: BENADRYL ONE (12:35)
--- NOTE | 2018-11-04 12:59 | Procedure Note ---
Date of procedure: 11/04/18 Pre-op diagnosis: Dysphagia/ Dyspepsia Post-op diagnosis: other (Mild,Benign Esophageal Stenosis (s/p Balloon dilation)/Mild,Distal Esophagitis/Gastric Erosion/Gastritis/R/O Celiac Disease) Procedure: EGD with Biopsy and s/p Balloon dilation (20 mm Balloon) Anesthesia: [facility] [place] Surgeon: DANIAL FARIA Estimated blood loss: minimal Pathology: list Specimen disposition: to lab Condition: stable Disposition: observation (Treat with PPI. Avoid aspirin and NSAID and anticoagulants for 4 days. resume home medication and follow up in 1 to 2 weeks ([phone]).)
[2018-11-04] MEDS ORDERED: DILAUDID IV PRN (13:30)
[2018-11-04] MEDS ORDERED: FLUSH HEPARIN IV ONE (14:42)
--- NOTE | 2018-11-04 14:59 | Operative Report ---
INDICATIONS: This is a 43-year-old obese -Citizen Of The [place] female who has an underlying history of sarcoidosis, history of glaucoma and prior history of H. pylori gastritis. She has a port and lately has been having some dysphagia and dyspepsia. She also has an underlying history of systemic lupus erythematosus. EGD was done to assess for the problem and to do an esophageal dilation and biopsies. DESCRIPTION OF PROCEDURE: The procedure was done after getting informed consent with MAC anesthesia. Instrument was passed through the hypopharynx into the esophagus, which showed some mild distal esophagitis. The esophagus was dilated at the end of the procedure with an esophageal balloon dilator, a 20 mm balloon dilator that was maintained for a minute. Biopsy was done from the midesophagus to rule out for eosinophilic esophagitis. The stomach showed antral erosion and gastritis. Biopsy was done from the antrum, the gastric body and angular incisura to rule out for H. pylori and atrophic gastritis. The pylorus was patent. The duodenum in the first and second portion appeared normal. Biopsy was done from the second part to rule out for possible celiac disease. ASSESSMENT: Dysphagia, dyspepsia, mild benign esophageal stenosis, status post balloon dilation, rule out eosinophilic esophagitis, rule out celiac disease, gastric erosion, gastritis, mild distal esophagitis. There was minimal bleeding associated with the procedure. No complications associated with the procedure. Plan is to treat the patient with PPI, have the patient stay on a soft diet and advance diet as tolerated. Avoid aspirin and aspirin-related products for the next few days and follow up in the office in 1-2 weeks' time. The patient is again found to be positive for H. pylori and the patient will be treated for that. The patient's procedure was done in the GI lab with assistance of anesthesia and with assistance and in the presence of the GI lab team, which included Ainsley MOCK as well as Daniel monroy. JOB# [id number] [place]
[2018-11-04 15:23] VITALS: BP 128/74
== END 2018-11-04 09:21 | disposition home or self-care (01) ==
LOC: GIO 09:20
DX: K30 Functional dyspepsia (principal); R13.10 Dysphagia, unspecified; R11.2 Nausea with vomiting, unspecified; K22.2 Esophageal obstruction; K29.50 Unspecified chronic gastritis without bleeding; K21.0 Gastro-esophageal reflux disease with esophagitis; B96.81 Helicobacter pylori [H. pylori] as the cause of diseases classified elsewhere; I48.91 Unspecified atrial fibrillation; I10 Essential (primary) hypertension; D72.829 Elevated white blood cell count, unspecified; D69.6 Thrombocytopenia, unspecified; E78.00 Pure hypercholesterolemia, unspecified; G47.30 Sleep apnea, unspecified; E66.9 Obesity, unspecified; M06.9 Rheumatoid arthritis, unspecified; F32.9 Major depressive disorder, single episode, unspecified; F41.9 Anxiety disorder, unspecified; Z88.6 Allergy status to analgesic agent; Z88.5 Allergy status to narcotic agent; Z91.018 Allergy to other foods; Z88.0 Allergy status to penicillin; Z86.19 Personal history of other infectious and parasitic diseases; Z90.49 Acquired absence of other specified parts of digestive tract; Z68.33 Body mass index [BMI] 33.0-33.9, adult; Z88.8 Allergy status to other drugs, medicaments and biological substances
CPT/HCPCS: 43239; 43249; 81025; 88305; 88312; 88341; 88342; C1726; J1170; J1200; J1642; J2704; J7030

== ENCOUNTER 2019-04-02 09:59 | Emergency (ER) | payer MEDICARE ==
[2019-04-02] MEDS ORDERED: IPRATROPIUM 0.02% NEBU 2.5 ML IH ONE (10:11)
[2019-04-02] MEDS ORDERED: ALBUTEROL 2.5 MG/3 ML NEBU IH ONE ×3 (10:11→10:52)
[2019-04-02 10:27] VITALS: BP 122/84
--- NOTE | 2019-04-02 10:32 | Emergency Department Report ---
ED General Adult HPI - General Chief complaint: Dyspnea/Respdistress Stated complaint: ASTHMATIC/SOB Source: patient Mode of arrival: Ambulatory Limitations: No Limitations - History of Present Illness Initial comments: Patient reports hx of lupus and sarcoidosis. Reports wheezing and generalized body pain feels like a lupus flare. Severity scale (0 -10): 5 - Related Data Home Medications Medication Instructions Recorded Confirmed Last Taken Pravastatin Sodium [Pravastatin] 10 mg PO QHS 11/09/16 06/16/17 06/14/17 lisinopriL [Zestril TAB] 10 mg PO QDAY 11/09/16 06/16/17 06/15/17 metHOTREXate sodium [Trexall] 2.5 mg PO DAILY 11/09/16 06/16/17 06/14/17 Metoprolol [Lopressor TAB] 50 mg PO BID 06/16/17 06/16/17 06/14/17 Promethazine [Phenergan] 50 mg PO Q6H PRN 06/16/17 06/16/17 06/14/17 carBAMazepine [TEGretol] 200 mg PO Q12HR 06/16/17 06/16/17 06/14/17 clonazePAM [KlonoPIN] 2 mg PO BID 06/16/17 06/16/17 06/14/17 Previous Rx's Medication Instructions Recorded Last Taken Type Fluticasone/Salmeterol [Advair 1 puff IH BID #1 blst.w.dev 11/12/15 06/15/17 Rx Diskus 250-50 mcg] Famotidine [Pepcid] 20 mg PO BID #10 tablet 12/27/15 06/15/17 Rx Albuterol INH(or & Nicu Only) 2 puff IH QID PRN #1 inhalation 10/09/16 06/15/17 Rx [ProAir HFA Inhaler] ALPRAZolam [Xanax TAB] 2 mg PO BID #7 tablet 12/07/16 06/14/17 Rx Levalbuterol 1.25 [Xopenex] 1.25 mg IH Q6HRT #120 nebu 12/07/16 06/15/17 Rx Zolpidem [Ambien] 10 mg PO QHS #3 tablet 12/07/16 06/14/17 Rx diphenhydrAMINE [Benadryl CAP] 50 mg PO TID #14 capsule 12/07/16 06/14/17 Rx predniSONE [Deltasone] 10 mg PO .TAPER #48 tab 12/07/16 06/14/17 Rx Amiodarone [Cordarone 200 MG TAB] 200 mg PO QDAY #30 tablet 06/20/17 Unknown Rx Apixaban [Eliquis] 5 mg PO Q12HR #60 tablet 06/20/17 Unknown Rx Esomeprazole Magnesium [NexIUM] 40 mg PO QDAY #30 capsule. 06/20/17 Unknown Rx Pantoprazole [Protonix TAB] 40 mg PO DAILY #30 tablet 06/20/17 Unknown Rx guaiFENesin/DM 100/10MG 10 ml PO Q4HR 10 Days udc 06/20/17 Unknown Rx [Robitussin Dm] Pantoprazole [Protonix] 40 mg PO QDAY 30 Days #30 tablet 11/04/18 Unknown Rx Albuterol Sulfate 2.5 mg IH Q4H PRN #30 vial.neb 04/02/19 Unknown Rx Allergies Allergy/AdvReac Type Severity Reaction Status Date / Time aspirin Allergy Rash Verified 06/22/15 09:22 baclofen Allergy Rash Verified 11/09/16 07:23 elliott Allergy Rash Verified 11/09/16 07:23 cephalexin monohydrate Allergy Rash Verified 11/09/16 07:23 [From Keflex] dexamethasone [From Decadron] Allergy Rash Verified 11/12/15 03:24 dexamethasone sod phosphate Allergy Rash Verified 11/12/15 03:24 [From Decadron] droperidol [From Inapsine] Allergy Rash Verified 07/18/16 11:03 fentanyl Allergy Rash Verified 11/09/16 07:23 ipratropium bromide Allergy Rash Verified 11/09/16 07:23 [From Atrovent] ketorolac tromethamine Allergy Rash Verified 11/09/16 07:23 [From Toradol] lorazepam [From Ativan] Allergy Swelling Verified 12/06/16 11:17 magnesium Allergy Rash Verified 11/09/16 07:23 meperidine HCl [From Demerol] Allergy Rash Verified 11/09/16 07:23 morphine Allergy Rash Verified 11/09/16 07:23 mushroom Allergy Rash Verified 11/09/16 07:23 naproxen [From Naprosyn] Allergy Swelling Verified 06/22/15 09:22 nut - unspecified Allergy Rash Verified 11/09/16 07:23 ondansetron HCl Allergy Rash Verified 11/09/16 07:23 [From Zofran (as hydrochloride)] Penicillins Allergy Rash Verified 11/09/16 07:23 pregabalin [From Lyrica] Allergy Rash Verified 11/09/16 07:23 prochlorperazine Allergy Rash Verified 11/09/16 07:23 [From Compazine] prochlorperazine edisylate Allergy Rash Verified 11/09/16 07:23 [From Compazine] prochlorperazine maleate Allergy Rash Verified 11/09/16 07:23 [From Compazine] sulfamethoxazole Allergy Rash Verified 06/22/15 09:22 [From Bactrim] sumatriptan [From Imitrex] Allergy Seizure Verified 11/09/16 07:23 sumatriptan succinate Allergy Seizure Verified 11/09/16 07:23 [From Imitrex] trimethoprim [From Bactrim] Allergy Rash Verified 06/22/15 09:22 ED Review of Systems ROS: Stated complaint: ASTHMATIC/SOB Other details as noted in HPI Other: GENERAL: No weight change, fatigue, fever, chills, or night sweats SKIN: No changes in skin or hair, no itching, no rashes, no jaundice HEAD: No trauma EYES: No blurriness, tearing, itching, acute visual loss, conjunctival discoloration, or scleral icterus EARS: No hearing loss, tinnitus, vertigo, or earache NOSE: No rhinorrhea, stuffiness, sneezing, itching, or epistaxis MOUTH: No bleeding gums, hoarseness, sore throat, or swelling CARDIAC: No new murmur, chest pain, palpitations, dyspnea on exertion, orthopnea, PND, or edema RESPIRATORY: Wheezing. No shortness of breath, cough, sputum production, hemoptysis GI: No abdominal pain, nausea, vomiting, dysphagia, diarrhea, constipation, hematemesis, melena, hematochezia URINARY: No frequency, urgency, polyuria, dysuria, hematuria, or incontinence MUSCULOSKELETAL: Generalized body aches. No muscle weakness, joint stiffness, decrease in range of motion, redness, swelling NEUROLOGIC: No headache, syncope, loss of sensation, numbness, tingling, tremors, weakness, paralysis, seizures HEMATOLOGIC: No anemia, easy bruising, bleeding, petechiae, or purpura ENDOCRINE: No hot or cold intolerance, sweating, polyuria, polydipsia or, polyphagia no thyroid problems PSYCHIATRIC: No change in mood, no anxiety, no depression ED Past Medical Hx - Past Medical History Hx Hypertension: Yes Hx Deep Vein Thrombosis: No Hx Renal Disease: No Hx Arthritis: Yes Hx Headaches / Migraines: Yes Hx Psychiatric Treatment: Yes (depression) Hx Asthma: Yes Hx HIV: No Additional medical history: Sarcoidosis, chronic pain management, H. yplori, LUPUS. PNEUMONIA, GALLBLADDER - Surgical History Hx Pacemaker: No Hx Internal Defibrillator: No Hx Cholecystectomy: Yes Additional Surgical History: Port placement left chest - Social History Smoking Status: Former Smoker Substance Use Type: None - Medications Home Medications: Home Medications Medication Instructions Recorded Confirmed Last Taken Type Fluticasone/Salmeterol [Advair 1 puff IH BID #1 blst.w.dev 11/12/15 06/16/17 06/15/17 Rx Diskus 250-50 mcg] Famotidine [Pepcid] 20 mg PO BID #10 tablet 12/27/15 06/16/17 06/15/17 Rx Albuterol INH(or & Nicu Only) 2 puff IH QID PRN #1 inhalation 10/09/16 06/16/17 06/15/17 Rx [ProAir HFA Inhaler] Pravastatin Sodium [Pravastatin] 10 mg PO QHS 11/09/16 06/16/17 06/14/17 History lisinopriL [Zestril TAB] 10 mg PO QDAY 11/09/16 06/16/17 06/15/17 History metHOTREXate sodium [Trexall] 2.5 mg PO DAILY 11/09/16 06/16/17 06/14/17 History ALPRAZolam [Xanax TAB] 2 mg PO BID #7 tablet 12/07/16 06/16/17 06/14/17 Rx Levalbuterol 1.25 [Xopenex] 1.25 mg IH Q6HRT #120 nebu 12/07/16 06/16/17 06/15/17 Rx Zolpidem [Ambien] 10 mg PO QHS #3 tablet 12/07/16 06/16/17 06/14/17 Rx diphenhydrAMINE [Benadryl CAP] 50 mg PO TID #14 capsule 12/07/16 06/16/17 06/14/17 Rx predniSONE [Deltasone] 10 mg PO .TAPER #48 tab 12/07/16 06/16/17 06/14/17 Rx Metoprolol [Lopressor TAB] 50 mg PO BID 06/16/17 06/16/17 06/14/17 History Promethazine [Phenergan] 50 mg PO Q6H PRN 06/16/17 06/16/17 06/14/17 History carBAMazepine [TEGretol] 200 mg PO Q12HR 06/16/17 06/16/17 06/14/17 History clonazePAM [KlonoPIN] 2 mg PO BID 06/16/17 06/16/17 06/14/17 History Amiodarone [Cordarone 200 MG TAB] 200 mg PO QDAY #30 tablet 06/20/17 Unknown Rx Apixaban [Eliquis] 5 mg PO Q12HR #60 tablet 06/20/17 Unknown Rx Esomeprazole Magnesium [NexIUM] 40 mg PO QDAY #30 capsule. 06/20/17 Unknown Rx Pantoprazole [Protonix TAB] 40 mg PO DAILY #30 tablet 06/20/17 Unknown Rx guaiFENesin/DM 100/10MG 10 ml PO Q4HR 10 Days udc 06/20/17 Unknown Rx [Robitussin Dm] Pantoprazole [Protonix] 40 mg PO QDAY 30 Days #30 tablet 11/04/18 Unknown Rx Albuterol Sulfate 2.5 mg IH Q4H PRN #30 vial.neb 04/02/19 Unknown Rx ED Physical Exam - General Limitations: No Limitations - Other Other exam information: GENERAL: Patient in no acute distress HEAD: Normocephalic, atraumatic EYES: PERRLA, EOM intact, no scleral icterus, no conjunctival hemorrhage, visual rondon and acuity wnl NOSE: No tenderness, discharge, sinus tenderness MOUTH: No erythema, bleeding, exudate HEART: Regular rate and rhythm, no murmur, S1-S2 are auscultated, no edema, pulses are symmetric LUNGS: Bilateral wheezing. No respiratory distress. Bilateral breath sounds, No tachypnea, No retractions. No rales, rhonchi ABDOMEN: Normal bowel sounds, abdomen soft, no tenderness, no rebound, no guarding, no distention, no masses, no CVA tenderness MUSCULOSKELETAL: Normal joint range of motion, no redness, no swelling, no tenderness NEUROLOGIC: GCS 15, Alert and Oriented x3, Cranial nerves intact, normal sensation, normal strength, no cerebellar deficit, NIHSS 0 SKIN: Skin is warm and dry, no wounds, no rashes ED Course Vital Signs 04/02/19 04/02/19 04/02/19 10:10 10:23 11:01 Temperature 98.1 F 98.2 F Pulse Rate 64 102 H Pulse Rate [ 107 H Anterior Bilateral Throughout] Respiratory 28 H 22 Rate Respiratory 19 Rate [Anterior Bilateral Throughout] Blood Pressure 122/84 Blood Pressure 144/77 [Right] O2 Sat by Pulse 98 100 Oximetry ED Medical Decision Making - Medical Decision Making Patient comfortable. Reports she feels better after the breathing treatment. R efuses laboratory or radiological evaluation in the ER. Reports she is going somewhere that will treat her pain now. Plan discharge with outpatient follow up. Return if any worsening. Critical care attestation.: If time is entered above; I have spent that time in minutes in the direct care of this critically ill patient, excluding procedure time. ED Disposition Clinical Impression: Bronchospasm, Drug-seeking behavior Disposition: - TO HOME OR SELFCARE Is pt being admited?: No Condition: Stable Instructions: Bronchospasm (ED) Prescriptions: Albuterol Sulfate 2.5 mg IH Q4H PRN #30 vial.neb PRN Reason: Wheezing Referrals: KEELEY NUNEZ MD [Staff Physician] - 2-3 Days PARAG MELGOZA MD [Staff Physician] - 2-3 Days Time of Disposition: 10:30
== END 2019-04-02 10:25 | disposition home or self-care (01) ==
LOC: ED 09:59
DX: J98.01 Acute bronchospasm (principal); Z76.5 Malingerer [conscious simulation]; I10 Essential (primary) hypertension; M19.90 Unspecified osteoarthritis, unspecified site; G43.909 Migraine, unspecified, not intractable, without status migrainosus; F32.9 Major depressive disorder, single episode, unspecified; Z90.49 Acquired absence of other specified parts of digestive tract; Z98.890 Other specified postprocedural states; Z87.891 Personal history of nicotine dependence; Z79.899 Other long term (current) drug therapy; Z88.6 Allergy status to analgesic agent; Z88.8 Allergy status to other drugs, medicaments and biological substances
CPT/HCPCS: 94640; 94644; 99282